=== PATIENT | male | born 1975 | race Two or more races ===

== ENCOUNTER 2020-02-08 14:28 | Emergency (ER) | payer BC, SELFPAY ==
--- NOTE | ~2020-02-08 | XR_ITS ---
XR finger 5th LT min 2V DATE: 02/08/2020 14:50 INDICATION: Smashed left fifth finger in car door. Distal pain. TECHNIQUE: 4 views COMPARISON: None FINDINGS: No fracture or dislocation, periosteal reaction or bone destruction. No radiopaque soft tis trace foreign body or subcutaneous emphysema. IMPRESSION: No fracture or dislocation Reviewed, dictated and finalized at location A. IMPRESSION: No fracture or dislocation
--- NOTE | 2020-02-08 14:29 | ED.GENADULT ---
HPI - General Adult General Chief complaint: Extremity Injury, Upper Stated complaint: finger injury Time Seen by Provider: 02/08/20 14:51 Source: patient and RN notes reviewed Mode of arrival: ambulatory Limitations: no limitations History of Present Illness HPI narrative: 45-year-old male presents with concern for a finger injury's left hand. Reports prior to arrival he crushed the tip of his fifth digit in a car door. Reports he had a hard time getting it to stop bleeding. Reports pain, bruising. He is not up-to-date on his tetanus. MD complaint: Finger injury Related Data Home Medications Medication Instructions Recorded Confirmed aspirin [Aspirin Low Dose] 81 mg PO DAILY 02/08/20 02/08/20 omeprazole 20 mg PO DAILY 02/08/20 02/08/20 Allergies Allergy/AdvReac Type Severity Reaction Status Date / Time Penicillins Allergy Unknown DOESN'T Verified 02/08/20 14:33 KNOW WAS A CHILD Review of Systems Review of Systems: Narrative: CONSTITUTIONAL: Denies malaise, chills, sweats, or fever. CARDIOVASCULAR: Denies chest pain, palpitations SKIN: Reports laceration to the fifth digit of the left hand MUSCULOSKELETAL: Reports bruising, pain to the fifth digit of left hand NEUROLOGIC: Denies numbness, weakness. All systems reviewed & are unremarkable except as noted in HPI and below PMFSH Comments At time of signature, agree with nursing past medical, surgical, social and family history. There is no relevant family history pertinent to the presenting complaint Exam Narrative: Exam Narrative: GENERAL: Well-appearing, well-nourished, and in no acute distress. HEAD: Normocephalic EYES: PERRLA NECK: Supple. CHEST: Speaks in full sentences. No respiratory distress. HEART: Regular rate and rhythm. Normal and equal peripheral pulses. EXTREMITIES: Left hand and digits of hand have normal strength and sensation. 5/5 strength with digit flexion, extension. Range of motion normal. No clubbing, cyanosis, or edema noted. No tenderness. Skin intact. Normal digital cascade with flexion of fingers, median, ulnar and radial nerve intact. Normal sensation of each side of finger. Can perform 'okay' sign, 'cross over finger test of index and middle fingers' and 'thumbs up' sign. No scissoring. Normal thumb opposition. Good capillary refill and radial pulse. Distal capillary refill <3 seconds. SKIN: Warm, dry, no rash. Irregular superficial laceration approximately 0.5 cm noted to the dorsal aspect of the fifth digit of the left hand, at the distal end, not involving nail bed. NEURO: Alert and oriented x3. PSYCH: Normal mood and affect Course Course Emergency Course: Wound cleaned, irrigated, Steri-Strips applied for wound closure, hemostasis achieved. Sterile dressing applied, anticipatory guidance given regarding wound care. Patient is aware of diagnosis, understands and agrees to treatment plan. Anticipatory guidance given. Patient agrees to follow-up as directed and is aware of reasons to seek care at the emergency department. Portions of this record may have been created with voice recognition software Vital Signs Vital signs: Vital Signs Temperature 99.5 F 02/08/20 14:40 Pulse Rate 70 02/08/20 14:40 Respiratory Rate 20 02/08/20 14:40 Blood Pressure 142/80 H 02/08/20 14:40 Pulse Oximetry 99 02/08/20 14:40 Temperature 99.5 F 02/08/20 14:40 Pulse Rate 70 02/08/20 14:40 Respiratory Rate 20 02/08/20 14:40 Blood Pressure 142/80 H 02/08/20 14:40 Pulse Oximetry 99 02/08/20 14:40 Reviewed. Pt has been instructed to follow up with his primary care provider within the next week regarding his elevated blood pressure today. Medical Decision Making MDM Narrative Medical decision making narrative: Patients injury and pain is consistent with musculoskeletal etiology. No signs of neurological or vascular compromise on exam. Compartments and tissues are soft without signs of compartment syndrome. Pain is fe
[2020-02-08 14:40] VITALS: BP 142/80; PULSE 70; RESP 20; TEMP 37.5; O2SAT 99
[2020-02-08] MEDS: TETANUS,DIPHTHERIA,AC PERTUSSIS ADULT 0.5 ML (ADACEL) IM (14:52)
== END 2020-02-08 15:14 | disposition home or self-care (01) ==
PROVIDERS: Emergency Provider Nurse Practitioner; PCP Nurse Practitioner Family
DX: S67.197A Crushing injury of left little finger, initial encounter (principal); W23.0XXA Caught, crushed, jammed, or pinched between moving objects, initial encounter; S61.217A Laceration without foreign body of left little finger without damage to nail, initial encounter; Z23 Encounter for immunization; Z86.73 Personal history of transient ischemic attack (TIA), and cerebral infarction without residual deficits; K21.9 Gastro-esophageal reflux disease without esophagitis
CPT/HCPCS: 73140; 90471; 90715; 99213; G0463

== ENCOUNTER 2020-06-22 07:34 | Outpatient (CLI) | payer BC, SELFPAY ==
--- NOTE | ~2020-06-22 | US_ITS ---
EXAMINATION: US thyroid DATE: 06/22/2020 08:35 INDICATION: Localized swelling, mass and lump at the neck. TECHNIQUE: Multiple ultrasound images of the thyroid were obtained. COMPARISON: CT dated 06/03/2014 FINDINGS: The right thyroid lobe measures 4.2 x 2.0 x 1.3 cm. The left thyroid lobe measures 3.0 x 1.2 x 1.3 c m. There are multiple subcentimeter bilateral thyroid nodules with well-defined margins the majority anechoic with peripheral echogenic foci most likely representing inspissated colloid at the peripher y of colloid cysts, the largest measuring 5 mm in the inferior left thyroid. There is a larger 9 mm w ider than tall solid hypoechoic nodule with ill-defined margins. (TI-RADS 4, moderately suspicious , FNA if >=1.5 cm, annual followup is >1 cm) in the right thyroid. There is normal echotexture, echogen icity and vascular flow throughout the remainder of the thyroid gland. IMPRESSION: 1. Multiple subcentimeter thyroid nodules the largest a 9 mm TI RADS 4 nodule in the remaining 5 mm o r smaller with appearance consistent with colloid cysts, none meeting consensus criteria for biopsy o r follow-up. Reviewed, dictated and finalized at location A. IMPRESSION: 1. Multiple subcentimeter thyroid nodules the largest a 9 mm TI RADS 4 nodule i n the remaining 5 mm or smaller with appearance consistent with colloid cysts, none meeting consensus criteria for biopsy or follow-up.
== END 2020-06-22 07:35 | disposition home or self-care (01) ==
PROVIDERS: PCP Nurse Practitioner Family; Visit Provider Otolaryngology
DX: E04.2 Nontoxic multinodular goiter (principal)
CPT/HCPCS: 76536

== ENCOUNTER 2021-01-09 09:30 | Outpatient (CLI) | payer BC, OTHER, SELFPAY | END 2021-01-09 09:31 | disposition home or self-care (01) | LOC: ANHCOVIDVC 09:30 | PROVIDERS: PCP Otolaryngology | DX: Z23 Encounter for immunization (principal) | CPT/HCPCS: 0001A; 91300 ==

== ENCOUNTER 2021-01-30 09:28 | Outpatient (CLI) | payer BC, OTHER, SELFPAY | END 2021-01-30 09:29 | disposition home or self-care (01) | LOC: ANHCOVIDVC 09:28 | PROVIDERS: PCP Otolaryngology | DX: Z23 Encounter for immunization (principal) | CPT/HCPCS: 0002A; 91300 ==

== ENCOUNTER 2021-02-23 07:26 | Outpatient (CLI) | payer BC, SELFPAY ==
--- NOTE | ~2021-02-23 | US_ITS ---
US thyroid INDICATION: Nontoxic thyroid nodule TECHNIQUE: Real-time sonographic images of the thyroid gland were obtained. COMPARISON: Ultrasound dated 06/22/2020 FINDINGS: The right thyroid lobe measures 3.8 x 1.6 x 1.6 cm. The left thyroid lobe measures 3.6 x 1 .3 x 1.5 cm. There is normal echotexture and echogenicity throughout the thyroid gland. There are mul tiple benign cystic nodules of the thyroid gland. The previously visualized 9 mm right thyroid nodule is not demonstrated on the current study. Isthmus measures 5 mm. Normal vascular flow is present. IMPRESSION: 1. Benign cystic nodules of the thyroid gland. No suspicious nodules which meet consistencies criter ia for biopsy or follow-up. Reviewed, dictated and finalized at location B. IMPRESSION: 1. Benign cystic nodules of the thyroid gland. No suspicious nodules which wencselao t consistencies criteria for biopsy or follow-up.
== END 2021-02-23 07:27 | disposition home or self-care (01) ==
PROVIDERS: PCP Otolaryngology; Visit Provider Otolaryngology
DX: E04.2 Nontoxic multinodular goiter (principal)
CPT/HCPCS: 76536

== ENCOUNTER 2021-05-27 16:54 | Outpatient (CLI) | payer BC, SELFPAY ==
--- NOTE | ~2021-05-27 | US_ITS ---
US thyroid INDICATION: Nontoxic thyroid nodule. TECHNIQUE: Real-time sonographic images of the thyroid gland were obtained. COMPARISON: Ultrasound dated 02/23/2021 FINDINGS: The right thyroid lobe measures 3.8 x 1.6 x 1.3 cm. The left thyroid lobe measures 4.3 x 1 .6 x 1.4 cm. There are multiple small subcentimeter cysts in both lobes of the thyroid gland. No horacio d masses are identified. There is normal vascularity in both thyroid lobes. IMPRESSION: 1. Benign subcentimeter cysts of the thyroid gland, likely of no clinical significance. Reviewed, dictated and finalized at location A. IMPRESSION: 1. Benign subcentimeter cysts of the thyroid gland, likely of no clinical sign ificance.
== END 2021-05-27 16:55 | disposition home or self-care (01) ==
PROVIDERS: PCP Otolaryngology; Visit Provider Otolaryngology
DX: E04.1 Nontoxic single thyroid nodule (principal)
CPT/HCPCS: 76536

== ENCOUNTER 2021-12-06 19:03 | Emergency (ER) | payer BC, SELFPAY ==
--- NOTE | ~2021-12-06 | CT_ITS ---
EXAMINATION: CT brain wo con EXAM DATE: 12/06/2021 22:06 INDICATION: Left upper extremity weakness, numbness . TECHNIQUE: Spiral CT of the head was performed without contrast. Axial, coronal and sagittal images were reviewed. The dose-length product (DLP) for this examination was 605.33 mGy-cm. The exposure w as tailored according to patient size, and iterative reconstruction (ASIR) was used as additional dos e reduction technique. There is no prior study for comparison. FINDINGS: There is no acute intraparenchymal hemorrhage. No evidence of intraparenchymal brain mass lesion. No evidence of acute infarction. There is no mass effect or midline shift. The ventricles are normal in size. There are no extra-axial collections. There are no acute calvarial fractures. T he orbits are unremarkable. Soft tissue is unremarkable. The visualized sinuses and mastoid air david ls are well aerated. IMPRESSION: 1. No acute intracranial findings. Reviewed, dictated and finalized at location B. A[facility] GR[employer]ER
--- NOTE | ~2021-12-06 | XR_ITS ---
EXAMINATION: XR chest 1V portable EXAM DATE: 12/06/2021 21:59 INDICATION: Lt Arm Weakness/Tingling, Heartburn, Hx Tia TECHNIQUE: Portable AP frontal chest x-ray was obtained. There is no prior study for comparison. FINDINGS: The lungs are clear. There are no pleural effusions. The cardiomediastinal silhouette is within normal limits. There is no pneumothorax suspected. The bones and soft tissues are unremarkab le. IMPRESSION: No acute cardiopulmonary findings. Reviewed, dictated and finalized at location B. [employer]
[2021-12-06 19:07] VITALS: BP 130/85; PULSE 78; RESP 18; TEMP 36.9; O2SAT 98
[2021-12-06 21:34] VITALS: BP 121/87; PULSE 73; RESP 19; O2SAT 96
--- NOTE | 2021-12-06 21:50 | ECG_ITS ---
Measurements Intervals [place] Rate: 68 P: 49 PA: 173 QRS: 64 QRSD: 78 T: 23 QT: 374 QTc: 398 Interpretive Statements SINUS RHYTHM MINIMAL Q WAVES- INFERIOR LEADS BORDERLINE ECG Electronically Signed On 12-07-2021 6:17:12 [employer] by Dequan Fernández D.O.
--- NOTE | 2021-12-06 21:52 | ED.NEUROSD ---
HPI - Neuro Symptoms/Deficit General Chief Complaint: Extremity Injury, Upper Stated Complaint: numbness and tingling to left arm Time Seen by Provider: 12/06/21 21:49 Source: patient Mode of arrival: ambulatory Limitations: no limitations History of Present Illness HPI Narrative: Patient is a 46-year-old male complaining of left upper extremity numbness, tingling that started around 11 AM this morning, lasting for about an hour and resolved. Patient states that the numbness and tingling recurred again at 6 PM accompanied by chest discomfort which he states has resolved. Patient denies any speech or visual disturbance, unsteady gait, headache, dizziness, chest pain, shortness of breath, abdominal pain, nausea, vomiting, fever or chills. Related Data Home Medications Medication Instructions Recorded Confirmed aspirin [Aspirin Low Dose] 81 mg PO DAILY 02/08/20 02/08/20 omeprazole 20 mg PO DAILY 02/08/20 02/08/20 atorvastatin 20 mg tablet 20 mg PO DAILY 06/19/20 Allergies Allergy/AdvReac Type Severity Reaction Status Date / Time ampicillin Allergy Unknown unknown Verified 12/06/21 19:13 Penicillins Allergy Unknown DOESN'T Verified 12/06/21 19:13 KNOW WAS A CHILD Review of Systems Review of Systems: All systems reviewed & are unremarkable except as noted in HPI and below Constitutional: Constitutional: Denies body ache(s), Denies chills, Denies excessive sweating, Denies fatigue, Denies fever(s), Denies headache(s), Denies lethargy, Denies malaise, Denies weakness and Denies weight loss Eyes: Eyes: Denies blurry vision, Denies change in vision and Denies loss of vision ENT: Denies dizziness, Denies ear discharge, Denies headache(s), Denies lip swelling, Denies epistaxis, Denies nasal congestion, Denies neck pain, Denies throat swelling and Denies tongue swelling Cardiovascular: Cardiovascular: Denies chest pain, Denies chest pain at rest, Denies chest pain with activity, Denies diaphoresis, Denies rapid heart rate, Denies edema, Denies irregular heart rhythm, Denies lightheadedness, Denies palpitations, Denies dyspnea and Denies dyspnea on exertion Respiratory: Respiratory: Denies chest congestion, Denies cough, Denies hemoptysis, Denies dyspnea and Denies dyspnea on exertion Gastrointestinal: Gastrointestinal: Denies abdominal pain, Denies melena, Denies hematochezia, Denies diarrhea, Denies nausea, Denies vomiting and Denies hematemesis Musculoskeletal: Musculoskeletal: Denies abnormal gait, Denies deformity, Denies joint swelling, Denies limited range of motion, Denies neck pain and Denies numbness Neurologic: Denies Abnormal speech present, Denies abnormal gait, Denies confusion, Denies dizziness, Denies headache(s), Denies loss of vision, Denies Other visual disturbances and Denies weakness Psychiatric: Psychiatric: Denies confusion, Denies depression, Denies auditory hallucinations, Denies homicidal ideation and Denies suicidal ideation Endocrine: Endocrine: Denies cold intolerance, Denies excessive sweating, Denies fatigue, Denies heat intolerance and Denies palpitations Hematologic/Lymphatic: Hematologic/Lymphatic: Denies easy bleeding and Denies easy bruising Allergic/Immunologic: Allergic/Immunologic: Denies lip swelling, Denies throat swelling and Denies tongue swelling [facility] Social History Social History Smoking status: Never smoker Alcohol intake: current Alcohol use details: occasionally Substance use: never Exam Const: General: cooperative, healthy appearing, comfortable, no acute distress, well developed, alert and awake; No confusion Orientation/consciousness: oriented to person, oriented to place, oriented to time, patient oriented x3 and No confusion Limitations: no limitations HENMT: Head: normal to inspection, normocephalic and atraumatic Ears: hearing grossly normal bilaterally, TM normal on the right and TM normal on the
[2021-12-06 22:30] LABS: Basophils Percent Auto 0.5 % (0.2-1.2); Eosinophils Absolute Auto 0.2 K/mm3 (0-0.3); Eosinophils Percent Auto 2.6 % (0-4.4); Hematocrit 39.2 % (42.0-52.0); Hemoglobin 14.4 g/dL (14.0-18.0); Immature Granulocyte Absolute 0.02 K/mm3 (0.00-0.031); Immature Granulocyte Percent A 0.3 % (0-0.5); Lymphocytes Percent Auto 35.4 % (18.3-44.2); Mean Corpuscular HGB Conc 36.7 g/dl (32-36); Mean Corpuscular Hemoglobin 31.6 pg (26-34); Mean Corpuscular Volume 86.2 fl (80-100); Mean Platelet Volume 10.8 fl (7.4-10.4); Monocytes Absolute Auto 0.5 K/mm3 (0.1-0.6); Monocytes Percent Auto 6.5 % (2.6-8.5); Neutrophils Percent Auto 54.7 % (45.5-73.1); Platelet Count Result 310 k/mm3 (150-375); Red Blood Count 4.55 M/mm3 (4.6-6.20); Red Cell Distribution Width 15.1 % (11.5-14.5); White Blood Count 7.3 K/mm3 (4.5-10.0)
[2021-12-06 22:40] LABS: Anion Gap 8 mmol/L (8-16); Blood Urea Nitrogen 13 mg/dL (9-20); Calcium 9.3 mg/dL (8.4-10.2); Carbon Dioxide 25 mmol/L (22-30); Chloride 104 mmol/L (98-107); Estimated CRCL calculation 71 ml/min; Estimated Glomerular Filt Rate > 60; Glucose 109 mg/dL (65-110); Potassium 3.7 mmol/L (3.4-5.0); Sodium 137 mmol/L (137-145)
[2021-12-06 22:49] LABS: Prothrombin Time 12.7 Seconds (11.1-14.7)
[2021-12-06 22:50] LABS: Partial Thromboplastin Time 26.4 SECONDS (22.3-36.8)
[2021-12-06 22:52] LABS: Troponin I < 0.012 ng/mL (0.000-0.034)
[2021-12-06] MEDS: ASPIRIN 81 MG CHEWABLE TABLET 324 MG PO (23:21)
--- NOTE | 2021-12-06 23:24 | PC.NURSE ---
Pt requested to leave AMA per ED MD. AMA form signed by pt and witnessed by this RN. IV out. a/o x 4. denies pain.
[2021-12-06 23:25] VITALS: BP 134/80; PULSE 74; RESP 18; TEMP 36.7; O2SAT 97
== END 2021-12-06 23:26 | disposition left against medical advice (07) ==
PROVIDERS: Emergency Provider Emergency Medicine; PCP Nurse Practitioner Family
DX: G45.9 Transient cerebral ischemic attack, unspecified (principal); R07.89 Other chest pain; Z79.82 Long term (current) use of aspirin
CPT/HCPCS: 36415; 70450; 71045; 80048; 84484; 85025; 85610; 85730; 93005; 99284; A9270

== ENCOUNTER 2021-12-14 02:43 | Day surgery (SDC) | payer BC, SELFPAY ==
[2021-12-09 10:54] VITALS: BMI 26.6
[2021-12-14 08:53] VITALS: BP 114/63; PULSE 74; TEMP 36.4; O2SAT 98
[2021-12-14] MEDS: LACTATED RINGERS 1,000 ML 150 ML IV CONT (09:00)
--- NOTE | 2021-12-14 09:01 | WPDANESEPPF ---
Anes - Initial Pre Proc Eval Procedure: Operation Date: 12/14/21 10:00 Proposed Procedures p Esophagogastroduodenoscopy - Phillip Harrington MD Date/Time: 12/14/21 09:01 Surgeon: Phillip Harrington MD Pre Op Diagnosis: GERD, Magdaleno's Esophagus Patient Data Age: 46 Gender: M Height: 1.57 m Weight: 66.1 kg Last Vital Signs Temp 36.4 C L 12/14/21 08:53 Pulse 74 12/14/21 08:53 BP 114/63 12/14/21 08:53 Pulse Ox 98 12/14/21 08:53 Allergies Allergy/AdvReac Type Severity Reaction Status Date / Time ampicillin Allergy Severe Other Verified 12/14/21 08:52 Penicillins Allergy Severe DOESN'T Verified 12/14/21 08:52 KNOW WAS A CHILD Home Medications Medication Instructions Recorded Confirmed Type aspirin [Aspirin Low Dose] 81 mg PO DAILY 02/08/20 12/09/21 History omeprazole 20 mg PO DAILY 02/08/20 12/09/21 History atorvastatin 20 mg tablet 20 mg PO DAILY 06/19/20 12/09/21 History Patient hx anesthesia problems: none Family hx anesthesia problems: none Results Review: All pre-operative results and documents have been reviewed as part of the pre-operative evaluation. [facility] Past Medical History Medical History (Updated 12/14/21 @ 09:01 by Theo Jo MD) Magdaleno's esophagus History of CVA (cerebrovascular accident) Overweight Social History Social History Smoking status: Never smoker Alcohol intake: current Drinks per week: 7 Alcohol use details: occasionally Substance use: never Substance use type: does not use Living arrangements: with family Spiritual care concerns: No Anes - Eval Final PreProcedure Day of Procedure 12/14/21 09:01 Patient weight: overweight Heart: regular rate and rhythm Lungs: clear to auscultation Airway: Mallampati scale class II Neurological: alert and oriented Last oral intake: >/= 8 hours ASA classification: II Emergent: no Anesthetic plan: proceed Anesthesia type and monitoring: general GIVS and standard monitoring Results Review: All pre-operative results and documents have been reviewed as part of the pre-operative evaluation. Informed Consent: The patient's anesthetic plan and its attendant risks and benefits were discussed with the patient/family/POA. Questions were solicited and answers provided to the satisfaction of the patient/family/POA.
--- NOTE | 2021-12-14 09:45 | PM.HPGS ---
History of Present Illness History of Present Illness Consent: Risks, benefits, and alternatives have been discussed and questions answered. Patient agrees to proceed with procedure. 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 Recently he has had a breakthrough with a great deal of burning in his chest a couple weeks ago. He actually went to the emergency room where cardiac evaluation was negative. He denies dysphagia Review of Systems Review of Systems: All systems reviewed & are unremarkable except as noted in HPI and below PMFSH Past Medical History Medical History Magdaleno's esophagus History of CVA (cerebrovascular accident) Overweight Social History Social History Smoking status: Never smoker Alcohol intake: current Drinks per week: 7 Alcohol use details: occasionally Substance use: never Substance use type: does not use Living arrangements: with family Spiritual care concerns: No Meds Home Medications and Allergies Home Medications Medication Instructions Recorded Confirmed Type aspirin [Aspirin Low Dose] 81 mg PO DAILY 02/08/20 12/09/21 History omeprazole 20 mg PO DAILY 02/08/20 12/09/21 History atorvastatin 20 mg tablet 20 mg PO DAILY 06/19/20 12/09/21 History Allergies Allergy/AdvReac Type Severity Reaction Status Date / Time ampicillin Allergy Severe Other Verified 12/14/21 08:52 Penicillins Allergy Severe DOESN'T Verified 12/14/21 08:52 KNOW WAS A CHILD Vital Signs Vital Signs - 24 hr 12/14/21 08:53 Temperature 36.4 C L Pulse Rate 74 Blood Pressure 114/63 Pulse Oximetry 98 Assessment and Plan Assessment and plan (1) GERD (gastroesophageal reflux disease): Code(s): K21.9 - Gastro-esophageal reflux disease without esophagitis Status: Acute Assessment and Plan: EGD with possible biopsy or dilatation or cautery.
[2021-12-14 09:59] VITALS: BP 92/59; PULSE 73; RESP 17; O2SAT 98
[2021-12-14 10:09] VITALS: BP 100/68; PULSE 70; RESP 12; O2SAT 100
[2021-12-14 10:19] VITALS: BP 98/70; PULSE 75; RESP 15; O2SAT 100
== END 2021-12-14 10:42 | disposition home or self-care (01) ==
PROVIDERS: PCP Nurse Practitioner Family; Visit Provider Internal Medicine Gastroenterology
PROC: 0DJ08ZZ Inspection of Upper Intestinal Tract, Via Natural or Artificial Opening Endoscopic (ICD-10-PCS; CPT 43235; principal; 2021-12-14 10:00)
DX: K22.70 Barrett's esophagus without dysplasia (principal); Z86.73 Personal history of transient ischemic attack (TIA), and cerebral infarction without residual deficits; Z79.82 Long term (current) use of aspirin
CPT/HCPCS: 43239; 88305; J2704; J7120

== ENCOUNTER 2021-12-23 08:03 | Outpatient (CLI) | payer BC, SELFPAY ==
--- NOTE | 2021-12-23 | EST_ITS ---
Patient Info Name: Bereket Schaefer Age: 46 years : 1975 Gender: Male Ht: 62 in Wt: 145 lbs BSA: 1.71 m2 HR: 67 bpm BP: 105 / 75 mmHg Heart Rhythm: Sinus Rhythm Exam Date: 12/23/2021 9:02 AM Exam Location: [facility] Stress Patient Status: Outpatient Admit Date: 12/23/2021 Staff Ordering Physician: Shawn, Lidia Melo [facility] Attending Provider: Shawn, Lidia Melo [facility] Exercise Technologist: Kirsty Dumont CT Nurse: NICHOLAS NIX Exam Type: CA stress test treadmill Study Info Indications R07.9 - Chest pain, unspecified A treadmill exercise stress test was performed. Summary 1. Normal sinus rhythm - normal ECG. 2. No abnormal ST/T wave changes with exercise. 3. Graded exercise test clinically and electrocardiographically negative to 94% of age predicted maximum heart rate. Protocol: [facility] Stress ECG Details Stage: REST Duration (min): 1 min : 25 sec Speed (mph): 0.0 Grade (%): 0 HR (bpm): 62 SBP (mmHg): 105 DBP (mmHg): 75 METS: --- Stage: REST Duration (min): 4 min : 5 sec Speed (mph): 0.0 Grade (%): 0 HR (bpm): 73 SBP (mmHg): 105 DBP (mmHg): 75 METS: --- Stage: STAGE 1 Duration (min): 1 min : 0 sec Speed (mph): 1.7 Grade (%): 10 HR (bpm): 94 SBP (mmHg): 105 DBP (mmHg): 75 METS: --- Stage: STAGE 1 Duration (min): 2 min : 0 sec Speed (mph): 1.7 Grade (%): 10 HR (bpm): 102 SBP (mmHg): 105 DBP (mmHg): 75 METS: --- Stage: STAGE 1 Duration (min): 3 min : 0 sec Speed (mph): 1.7 Grade (%): 10 HR (bpm): 101 SBP (mmHg): 147 DBP (mmHg): 69 METS: --- Stage: STAGE 2 Duration (min): 1 min : 0 sec Speed (mph): 2.5 Grade (%): 12 HR (bpm): 115 SBP (mmHg): 147 DBP (mmHg): 69 METS: --- Stage: STAGE 2 Duration (min): 2 min : 0 sec Speed (mph): 2.5 Grade (%): 12 HR (bpm): 116 SBP (mmHg): 179 DBP (mmHg): 68 METS: --- Stage: STAGE 2 Duration (min): 3 min : 0 sec Speed (mph): 2.5 Grade (%): 12 HR (bpm): 123 SBP (mmHg): 179 DBP (mmHg): 68 METS: --- Stage: STAGE 3 Duration (min): 1 min : 0 sec Speed (mph): 3.4 Grade (%): 14 HR (bpm): 137 SBP (mmHg): 179 DBP (mmHg): 68 METS: --- Stage: STAGE 3 Duration (min): 2 min : 0 sec Speed (mph): 3.4 Grade (%): 14 HR (bpm): 149 SBP (mmHg): 181 DBP (mmHg): 86 METS: --- Stage: STAGE 3 Duration (min): 3 min : 0 sec Speed (mph): 3.4 Grade (%): 14 HR (bpm): 155 SBP (mmHg): 181 DBP (mmHg): 86 METS: --- Stage: STAGE 4 Duration (min): 1 min : 0 sec Speed (mph): 4.2 Grade (%): 16 HR (bpm): 164 SBP (mmHg): 181 DBP (mmHg): 86 METS: --- Stage: STAGE 4 Duration (min): 1 min : 0 sec Speed (mph): 4.2 Grade (%): 16 HR (bpm): 164 SBP (mmHg):
== END 2021-12-23 08:04 | disposition home or self-care (01) ==
PROVIDERS: PCP Nurse Practitioner Family; Visit Provider Nurse Practitioner Family
DX: R07.9 Chest pain, unspecified (principal)
CPT/HCPCS: 93017

== ENCOUNTER 2022-06-24 00:16 | Day surgery (SDC) | payer BC, SELFPAY ==
[2022-06-09 14:51] VITALS: BMI 25.7
--- NOTE | 2022-06-23 15:57 | PM.HPGS ---
History of Present Illness History of Present Illness Consent: Risks, benefits, and alternatives have been discussed and questions answered. Patient agrees to proceed with procedure. Chief complaint: neoplasm screening Narrative: Bereket Schaefer is a 47 year old male referred for colon cancer screening. Review of Systems Review of Systems: All systems reviewed & are unremarkable except as noted in HPI and below PMFSH Past Medical History Medical History Magdaleno's esophagus History of CVA (cerebrovascular accident) Overweight Social History Social History Smoking status: Never smoker Alcohol intake: current Drinks per week: 7 Alcohol use details: occasionally Substance use: unknown Substance use type: does not use Living arrangements: with family Spiritual care concerns: No Meds Home Medications and Allergies Home Medications Medication Instructions Recorded Confirmed Type aspirin 81 mg tablet,delayed 81 mg PO DAILY 02/08/20 06/24/22 History release (Alejo Low Dose Aspirin) atorvastatin 20 mg tablet 20 mg PO DAILY 06/19/20 06/24/22 History pantoprazole 40 mg tablet,delayed 40 mg PO QAM 4 weeks #30 tabs 12/15/21 06/24/22 Rx release Allergies Allergy/AdvReac Type Severity Reaction Status Date / Time ampicillin Allergy Severe Other Verified 06/24/22 06:31 Penicillins Allergy Severe DOESN'T Verified 06/24/22 06:31 KNOW WAS A CHILD Exam Const: General: alert Orientation/consciousness: patient oriented x3 Resp: Auscultation: clear to auscultation bilaterally Cardio: Rhythm: regular rhythm GI: GI Palp: Yes Soft to palpation and No Tenderness to palpation present (GI) Neuro: General: patient oriented x3 Assessment and Plan Assessment and plan (1) Colon cancer screening: Code(s): Z12.11 - Encounter for screening for malignant neoplasm of colon Status: Acute Assessment and Plan: Colonoscopy with possible biopsy or polypectomy or cautery or injection of substances.
[2022-06-24 06:07] VITALS: BP 110/72; PULSE 67; RESP 18; TEMP 36.1; O2SAT 99; BMI 25.9
[2022-06-24] MEDS: LACTATED RINGERS 1,000 ML 150 ML IV CONT (06:43)
--- NOTE | 2022-06-24 07:21 | P.PNAN_ITS ---
Anes - Initial Pre Proc Eval Procedure: Operation Date: 06/24/22 07:30 Proposed Procedures p Screening Colonoscopy - Phillip Harrington MD Date/Time: 06/24/22 07:21 Surgeon: Phillip Harrington MD Pre Op Diagnosis: neoplasm screening Patient Data Age: 47 Gender: M Height: 1.57 m Weight: 64.3 kg Last Vital Signs Temp 96.9 F L 06/24/22 06:07 Pulse 67 06/24/22 06:07 Resp 18 06/24/22 06:07 BP 110/72 06/24/22 06:07 Pulse Ox 99 06/24/22 06:07 O2 Del Method Room Air 06/24/22 06:07 Allergies Allergy/AdvReac Type Severity Reaction Status Date / Time ampicillin Allergy Severe Other Verified 06/24/22 06:31 Penicillins Allergy Severe DOESN'T Verified 06/24/22 06:31 KNOW WAS A CHILD Home Medications Medication Instructions Recorded Confirmed Type aspirin 81 mg tablet,delayed 81 mg PO DAILY 02/08/20 06/24/22 History release (Alejo Low Dose Aspirin) atorvastatin 20 mg tablet 20 mg PO DAILY 06/19/20 06/24/22 History pantoprazole 40 mg tablet,delayed 40 mg PO QAM 4 weeks #30 tabs 12/15/21 06/24/22 Rx release Patient hx anesthesia problems: none Family hx anesthesia problems: none Results Review: All pre-operative results and documents have been reviewed as part of the pre- operative evaluation. [facility] Past Medical History Medical History Magdaleno's esophagus History of CVA (cerebrovascular accident) Overweight Social History Social History Smoking status: Never smoker Alcohol intake: current Drinks per week: 7 Alcohol use details: occasionally Substance use: unknown Substance use type: does not use Living arrangements: with family Spiritual care concerns: No Anes - Eval Final PreProcedure Day of Procedure 06/24/22 07:21 Patient weight: normal Heart: regular rate and rhythm Lungs: clear to auscultation Airway: Mallampati scale class II Neurological: alert and oriented Last oral intake: >/= 8 hours ASA classification: II Emergent: no Anesthetic plan: proceed Anesthesia type and monitoring: general GIVS and standard monitoring Results Review: All pre-operative results and documents have been reviewed as part of the pre- operative evaluation. Informed Consent: The patient's anesthetic plan and its attendant risks and benefits were discussed with the patient/family/POA. Questions were solicited and answers provided to the satisfaction of the patient/family/POA.
[2022-06-24 07:51] VITALS: BP 90/57; PULSE 64; RESP 16; O2SAT 100
[2022-06-24 08:01] VITALS: BP 95/67; PULSE 69; RESP 22; O2SAT 100
[2022-06-24 08:11] VITALS: BP 106/73; PULSE 78; RESP 16; O2SAT 100
== END 2022-06-24 08:27 | disposition home or self-care (01) ==
PROVIDERS: PCP Nurse Practitioner Family; Visit Provider Internal Medicine Gastroenterology
PROC: 0DJD8ZZ Inspection of Lower Intestinal Tract, Via Natural or Artificial Opening Endoscopic (ICD-10-PCS; CPT 45378; principal; 2022-06-24 07:30)
DX: Z12.11 Encounter for screening for malignant neoplasm of colon (principal); Z79.82 Long term (current) use of aspirin; K22.70 Barrett's esophagus without dysplasia; Z86.73 Personal history of transient ischemic attack (TIA), and cerebral infarction without residual deficits
CPT/HCPCS: 45378; J2704; J7120

== ENCOUNTER 2023-05-18 07:52 | Outpatient (CLI) | payer OTHER, SELFPAY ==
--- NOTE | ~2023-05-18 | US_ITS ---
Thyroid ultrasound. Clinical History: Thyroid nodule Findings: Real-time sonography of the thyroid gland was performed. The right lobe measures 4.5 x 1.0 x 2.0 cm. The left lobe measures 4.1 x 1.3 x 1.7 cm. The isthmus is 4 mm in AP diameter. There are t iny subcentimeter colloid cystic nodules in the left thyroid lobe. Impression: Tiny colloid cystic nodules in the left thyroid lobe, of no clinical significance.. Reviewed, dictated and finalized at location M. Impression: Tiny colloid cystic nodules in the left thyroid lobe, of no clinical significan ce..
== END 2023-05-18 07:53 | disposition home or self-care (01) ==
PROVIDERS: PCP Nurse Practitioner Family; Visit Provider Otolaryngology
DX: E04.2 Nontoxic multinodular goiter (principal)
CPT/HCPCS: 76536

== ENCOUNTER 2023-12-27 11:35 | Outpatient (CLI) | payer OTHER, SELFPAY ==
--- NOTE | ~2023-12-27 | XR_ITS ---
Right elbow Technique: AP, oblique, and lateral views were obtained. Clinical History: Pain Findings: No acute fracture or dislocation is seen. Osseous alignment is anatomic. Joint spaces are p reserved. There is no displacement of the fat pads, and soft tissues are unremarkable. Impression: Unremarkable radiographs. Reviewed, dictated and finalized at [facility]. [place] [employer] Impression: Unremarkable radiographs.
== END 2023-12-27 11:36 ==
PROVIDERS: PCP Family Medicine; Visit Provider Family Medicine
DX: M25.521 Pain in right elbow (principal)
CPT/HCPCS: 73080

== ENCOUNTER 2024-05-31 13:17 | Outpatient (CLI) | payer OTHER, SELFPAY ==
--- NOTE | ~2024-05-31 | US_ITS ---
EXAMINATION: US thyroid DATE: 05/31/2024 14:18 INDICATION: Thyroid nodule. TECHNIQUE: Multiple ultrasound images of the thyroid were obtained. COMPARISON: Ultrasound 05/18/2023 FINDINGS: The right thyroid lobe measures 4.3 x 1.4 x 1.5 cm. The left thyroid lobe measures 3.9 x 1.5 x 1.2 c m. There are a few nodules in the thyroid measuring up to 4 mm. IMPRESSION: 1. Small thyroid nodules, likely not clinically significant. No follow-up is needed. Reviewed, dictated and finalized at location A. IMPRESSION: 1. Small thyroid nodules, likely not clinically significant. No follow-up is ne eded.
== END 2024-05-31 13:18 | disposition home or self-care (01) ==
LOC: ANHIMG 13:17
PROVIDERS: PCP Family Medicine; Visit Provider Otolaryngology
DX: E04.2 Nontoxic multinodular goiter (principal)
CPT/HCPCS: 76536

== ENCOUNTER 2024-10-06 10:21 | Emergency (ER) | payer OTHER, SELFPAY ==
[2024-10-06 10:35] VITALS: BP 110/72; PULSE 73; RESP 16; TEMP 36.3; O2SAT 99
--- NOTE | 2024-10-06 10:35 | ED.GENADULT ---
HPI - General Adult General Chief complaint: Upper Respiratory Infection Stated complaint: cold Time Seen by Provider: 10/06/24 10:35 Source: patient Mode of arrival: ambulatory Limitations: no limitations History of Present Illness HPI narrative: 49-year-old male patient presents to the [facility] with complaints of cold symptoms for the past week. Patient denies any fevers that he is aware of denies any body aches or chills. Patient states he has had a lot of congestion and headache and some postnasal drip and sore throat. Patient states he has a mild cough but typically it is just in the morning when he wakes up does not really have a cough throughout the day. Patient has had some fatigue. Related Data Home Medications Medication Instructions Recorded Confirmed aspirin 81 mg tablet,delayed 81 mg PO DAILY 02/08/20 10/06/24 release (Alejo Low Dose Aspirin) Allergies Allergy/AdvReac Type Severity Reaction Status Date / Time ampicillin Allergy Severe Other Verified 10/06/24 10:41 Penicillins Allergy Severe DOESN'T Verified 10/06/24 10:41 KNOW WAS A CHILD Review of Systems Review of Systems: CONSTITUTIONAL: Denies fever, chills, or sweats. EYES: Denies visual changes, redness, or discharge. ENT: Positive rhinorrhea, congestion, sore throat, denies otalgia. CARDIOVASCULAR: Denies chest pain, palpitations, or edema. RESPIRATORY: positive mild intermittent cough denies dyspnea. GASTROINTESTINAL: Denies abdominal pain, nausea, vomiting, or diarrhea. GENITOURINARY: Denies dysuria or hematuria. SKIN: Denies rash or itching. MUSCULOSKELETAL: Denies back pain, joint pain, or myalgia. NEUROLOGIC: positive headache, denies numbness, or weakness. PSYCHIATRIC: Denies anxiety or depression. [facility] Past Medical History Medical History Magdaleno's esophagus History of CVA (cerebrovascular accident) Overweight Surgical History Surgical History H/O removal of cyst Family History Family History Mother Asthma Cancer Father Cancer Grandparent Alcoholism Cancer Heart disease Social History Social History (Reviewed 10/06/24 @ 11:01 by TRUDI Villagran Smoking status: Never smoker Alcohol intake: current Drinks per week: 7 Alcohol use details: occasionally Substance use: unknown Substance use type: does not use Do You Feel Safe in your Home?: Yes Lack of Transportation: No Lack of Food: Never True Current Housing: I Have Housing Concerned About Future Housing: No Difficulty Paying Gas/Electric Bills: No Difficulty Paying for Meds: No Currently Unemployed: No Education: Don't Know Living arrangements: with family Additional living arrangements comments: Single Occupation/Education: occupation Spiritual care concerns: No Agree to blood products: Yes Comments At the time of my signature I agree with nursing past medical history, surgical, social, and family history. There is no relevant family history pertinent to the presenting complaint. Exam Narrative: GENERAL: Well-appearing, well-nourished, and in no acute distress. HEAD: Normocephalic, atraumatic. EYES: PERRLA and EOMI. ENT: Nares with erythema edema noted bilaterally patent, no rhinorrhea or epistaxis. Mucous membranes moist. posterior pharynx with smiles postnasal drip no tonsillar enlargement, no exudates or lesions present. Bilateral TMs are clear no erythema foreign bodies canal. NECK: Supple. No lymphadenopathy CHEST: Clear to auscultation. No respiratory distress. HEART: Regular rate and rhythm. No murmur heard. Normal peripheral pulses. ABDOMEN: Soft, nontender, nondistended, normal active bowel sounds. EXTREMITIES: Normal range of motion. No edema. SKIN: Warm, dry, no rash. NEURO: No focal deficits. Alert and oriented x3. Course Course Level of Care: Express Care Visit Vital Signs Vital signs: Vital Signs Temperature 36.3 C L 10/06/24 10:35 Pulse Rate 73 10/06/24 10:35 Respiratory Rate 16 10/06/24 10:35 Blood Pressure 110/72 10/06/24 10:35 Pulse Oximetry 99 10/06/24 10:35 Oxygen Delivery Room Air 10/06/24 10:35 Temperature 36.3 C L 10/06/24 10:35 Pulse Rate 73 10/06/24 10:35 Respiratory Rate 16 10/06/24 10:35 Blood Pressure 110/72 10/06/24 10:35 Pulse Oximetry 99 10/06/24 10:35 Oxygen Delivery Room Air 10/06/24 10:35 Vital signs reviewed. Medical Decision Making MDM Narrative Medical decision making narrative: Plan care patients to swab him today for influenza and COVID. Discussed with him that if this is negative most likely it is a virus with that he can treat with [id number] medications would recommend [id number] Neti pot, antihistamine, Flonase and humidified air as well as warm salt-water gargles hot tea and honey. Patient is aware the plan of care. Differential Diagnosis Differential Diagnosis: Differential diagnosis: Allergic rhinitis, chronic sinusitis, tonsillitis, acute sinusitis, infectious mononucleosis, seasonal influenza, pertussis, diphtheria, meningococcal disease, viral syndrome, viral bronchitis, RSV, COVID-19 Vital Signs Vital Signs: Vital Signs Temperature 36.3 C L 10/06/24 10:35 Pulse Rate 73 10/06/24 10:35 Respiratory Rate 16 10/06/24 10:35 Blood Pressure 110/72 10/06/24 10:35 Pulse Oximetry 99 10/06/24 10:35 Oxygen Delivery Room Air 10/06/24 10:35 Temperature 36.3 C L 10/06/24 10:35 Pulse Rate 73 10/06/24 10:35 Respiratory Rate 16 10/06/24 10:35 Blood Pressure 110/72 10/06/24 10:35 Pulse Oximetry 99 10/06/24 10:35 Oxygen Delivery Room Air 10/06/24 10:35 Lab Data Labs: Lab Results 10/06/24 Range/Units 11:05 POC Influenza A Ag Negative (Negative) POC Influenza B Ag Negative (Negative) POC SARS CoV-2 Ag Negative (Negative) Critical Care Time Critical Care Time Critical Care Time: No Discharge Plan Discharge Clinical Impression: Viral URI Patient Disposition: Home, Self-Care Condition: Stable Instructions: Antibiotic Form, Viral Syndrome (ED) Additional Instructions: Viral illness may last between 7-12days; antibiotic is NOT recommended at this time. Recommend antihistamine such as Benadryl at night time and Claritin/Zyrtec/Nika during the day Cough syrup may cause drowsiness; avoid driving or take it at night time. Also, recommend symptomatic treatment includes: rest, fluids, and increase humidity of the air at home. Recommend Acetaminophen or nonsteroidal anti-inflammatory agents (NSAIDs) as directed in the bottle to reduce fever and/pain/headache. Avoid smoking/second-hand smoke. Limit visits to areas with large crowds. Please schedule a follow-up visit with your personal physician for further evaluation and treatment within 3-5days. Including recheck and discussion of your blood pressure. If your symptoms persist, change or worsen significantly before you can contact your personal physician then please, without delay, go to the emergency department for further evaluation. Prescriptions: No Action aspirin [Alejo Low Dose Aspirin] 81 mg Tablet,Delayed Release (Dr/Ec) 81 mg PO DAILY pantoprazole 40 mg tablet,delayed release (DR/EC) 40 mg PO DAILY Qty: 90 2RF atorvastatin 20 mg tablet 20 mg PO DAILY Qty: 90 1RF finasteride 5 mg tablet 5 mg PO DAILY Qty: 90 0RF triamcinolone acetonide 0.5 % cream 1 applic topical DAILY Qty: 15 0RF Airsupra 90-80 mcg/actuation HFA aerosol inhaler 2 inh inhalation ONCE Qty: 32.1 2RF Rx Instructions: as a single dose; may repeat up to 6 doses per day (12 inhalations) Follow-up/Referrals: Lidia Escobar APRN [Primary Care Provider] - Time of Disposition: 11:11
[2024-10-06 11:06] LABS: EDCOVIDSCREEN Negative (Negative); EDINFLUASCREEN Negative (Negative); EDINFLUBSCREEN Negative (Negative)
== END 2024-10-06 11:18 | disposition home or self-care (01) ==
PROVIDERS: Emergency Provider Nurse Practitioner Family; PCP Nurse Practitioner Family
DX: J06.9 Acute upper respiratory infection, unspecified (principal); Z20.822 Contact with and (suspected) exposure to COVID-19; K22.70 Barrett's esophagus without dysplasia; Z86.73 Personal history of transient ischemic attack (TIA), and cerebral infarction without residual deficits; Z79.82 Long term (current) use of aspirin
CPT/HCPCS: 87426; 87804; 99212; G0463

== ENCOUNTER 2025-01-05 09:05 | Emergency (ER) | payer OTHER, SELFPAY ==
--- OUTSIDE RECORDS SUMMARY | 2025-01-05 09:08 | XMS_ITS | Data Portability ---
Author Organization [place] - [facility] [employer], Main Office Address [address] [place] [address] Assessment Encounter Date Assessment Date Assessment LastModified by Organization Details LastModified Time 12/27/2023 12/27/2023 D/w pt about his findings and further plan of care. Explained about different options for him. Will do x-ray. Meds as directed. RICE explained. Educated pt about alarming symptoms to monitor at home. F/u in 2-3 weeks as directed. [email or web address] Not available 12/27/2023 10:15:05 Plan of Treatment Reminders Order Date Submit Date Provider Last Modified By Organization Details Last Modified Time Details Appointments None recorded. Lab lipid [facility], [email or web address] [address] [place], [address], 3 07:56:44 Referral None recorded. Procedures None recorded. Surgeries None recorded. Imaging XR, elbow, 3 or more view - Pt over the blood draw site 1 week ago. 024 024 [email or web address] Not available 4 14:33:26 Medication Orders Medrol (Gianni) 4 mg tablets in a dose pack 024 024 [id number], [address], [place], [id number], 4 12:08:51 Pepcid 40 mg tablet 023 023 [id number], [address], [place], [id number], 11:29:50 Patient TargetsNo targets recorded. Patient Instructions Encounter Date Encounter Id Patient Instructions Last Modified By Organization Details Last Modified Time 06/24/2023 [id number] prn. [email or web address] Not available 06/24 11:34:34 06/07/2024 [id number] he will have a a n ultrasound in 1 year. [email or web address] Not available 06/07/2024 12:53:23 Reason for Referral None Reported. Results Created Date Observation Date Name Description Value Unit Range Abnormal Flag Note LastModifiedBy Organization Detail LastModifiedTime 04/28/2004/28/2023 CBC/C OMPLE TE BLD COUNT W/DIF F white blood cells 6.6 x10'3 /uL 4.2-10 .8 Not Available [facility] (Lab) [address] [place], [address], 04/28/2023 14:09:47 04/28/20 23 04/28/2023 CBC/C OMPLE TE BLD COUNT W/DIF F red blood cells 4.85 x10'6 /uL 4.10-5 .80 Not Available [facility] (Lab) [address] [place], [address], 04/28/2023 14:09:47 04/28/20 23 04/28/2023 CBC/C OMPLE TE BLD COUNT W/DIF F hemoglobin 15.0 g/dL 13.2-1 7.0 Not Available [facility] (Lab) [address] [place], [address], 04/28/2023 14:09:47 04/28/20 23 04/28/2023 CBC/C OMPLE TE BLD COUNT W/DIF F hematocrit 42.4 % 39.3-5 0.0 Not Available [facility] (Lab) [address] [place], [address], 04/28/2023 14:09:47 04/28/20 23 04/28/2023 CBC/C OMPLE TE BLD COUNT W/DIF F mean red cell volume 87.4 fL 80.0-9 7.0 Not Available [facility] (Lab) [address] [place], [address], 04/28/2023 14:09:47 04/28/20 23 04/28/2023 CBC/C OMPLE TE BLD COUNT W/DIF F mean red cell hemoglobin 30.9 pg 27.0-3 3.0 Not Available [facility] (Lab) [address] [place], [address], 04/28/2023 14:09:47 04/28/20 23 04/28/2023 CBC/C OMPLE TE BLD COUNT W/DIF F mean RBC HGB concentratio n 35.4 g/dL 31.0-3 6.0 Not Available [facility] (Lab) [address] [place], [address], 04/28/2023 14:09:47 04/28/20 23 04/28/2023 CBC/C OMPLE TE BLD COUNT W/DIF F red cell distribution width 15.1 % 11.8-1 5.5 Not Available [facility] (Lab) [address] [place], [address], 04/28/2023 14:09:47 04/28/20 23 04/28/2023 CBC/C OMPLE TE BLD COUNT W/DIF F platelets 324 x10'3 /uL 150-40 0 Not Available [facility] (Lab) [address] [place], [address], 04/28/2023 14:09:47 04/28/20 23 04/28/2023 CBC/C OMPLE TE BLD COUNT W/DIF F mean platelet volume 11.0 fL 9.0-12 .4 Not Available [facility] (Lab) [address] [place], [address], 04/28/2023 14:09:47 04/28/20 23 04/28/2023 CBC/C OMPLE TE BLD COUNT W/DIF F neutrophils 62.3 % 39.0-7 2.0 Not Available [facility] (Lab) [address] [place], [address], 04/28/2023 14:09:47 04/28/20 23 04/28/2023 CBC/C OMPLE TE BLD COUNT W/DIF F lymphocytes 25.1 % 16.0-4 7.0 Not Available [facility] (Lab) [address] [place], [address], 04/28/2023 14:09:47 04/28/20 23 04/28/2023 CBC/C OMPLE TE BLD COUNT W/DIF F monocytes 7.1 % 5.0-12 .0 Not Available [facility] (Lab) [address] [place], [address], 04/28/2023 14:09:47 04/28/20 23 04/28/2023 CBC/C OMPLE TE BLD COUNT W/DIF F eosinophils 4.1 % 1.0-7. 0 Not Available [facility] (Lab) [address] [place], [address], 04/28/2023 14:09:47 04/28/20 23 04/28/2023 CBC/C OMPLE TE BLD COUNT W/DIF F basophils 0.8 % 0.0-2. 0 Not Available [facility] (Lab) [address] [place], [address], 04/28/2023 14:09:47 04/28/20 23 04/28/2023 CBC/C OMPLE TE BLD COUNT W/DIF F immature granulocytes 0.6 % 0.00-0 .50 high Not Available [facility] (Lab) [address] [place], [address], 04/28/2023 14:09:47 06/29/04/28/2023 CBC/C OMPLE TE BLD COUNT W/DIF F neutrophils, absolute count 4.12 x10'3 /uL 1.5-8. 0 Not Available [facility] (Lab) [address] [place], [address], 04/28/2023 14:09:47 04/28/20 23 04/28/2023 CBC/C OMPLE TE BLD COUNT W/DIF F lymphocytes, absolute count 1.66 x10'3 /uL 1.07-3 .43 Not Available [facility] (Lab) [address] [place], [address], 04/28/2023 14:09:47 04/28/2004/28/2023 CBC/C OMPLE TE BLD COUNT W/DIF F monocytes, absolute count 0.47 x10'3 /uL 0.29-0 .99 Not Available [facility] (Lab) [address] [place], [address], 04/28/2023 14:09:47 04/28/20 23 04/28/2023 CBC/C OMPLE TE BLD COUNT W/DIF F eosinophils, absolute count 0.27 x10'3 /uL 0.02-0 .53 Not Available [facility] (Lab) [address] [place], [address], 04/28/2023 14:09:47 04/28/2004/28/2023 CBC/C OMPLE TE BLD COUNT W/DIF F basophils, absolute count 0.05 x10'3 /uL 0.01-0 .08 Not Available [facility] (Lab) [address] [place], [address], 04/28/2023 14:09:47 04/28/2004/28/2023 CBC/C OMPLE TE BLD COUNT W/DIF F immature granulocytes ,absolute 0.04 x10'3 /uL 0.00-0 .05 Not Available [facility] (Lab) [address] [place], [address], 04/28/2023 14:09:47 04/28/20 23 04/28/2023 CBC/C OMPLE TE BLD COUNT W/DIF F nucleated red blood cells 0.0 % -0 Not Available [facility] (Lab) [address] [place], [address], 04/28/2023 14:09:47 04/28/20 23 04/28/2023 CBC/C OMPLE TE BLD COUNT W/DIF F NRBC# 0.00 x10'3 /uL Not Available [facility] (Lab) [address] [place], [address], 04/28/2023 14:09:47 04/28/20 23 04/28/2023 LIPID PANEL cholesterol 203 mg/dL 140-19 9 high NIH MAURA NSUS RECOM MENDA TION FOR SUSHIL STERO L: ADULT CHILD LOW RISK: <200 <170 BORDE RLINE : <200- 239 ----- HIGH RISK: >240 >200 Not Available [facility] (Lab) [address] [place], [address], 04/28/2023 14:24:50 04/28/2004/28/2023 LIPID PANEL triglyceride s 273 mg/dL 0-150 high NIH MAURA NSUS REPOR T RECOM MENDA TION FOR TRIGL YCERI YASMINE: ADULT CHILD LOW RISK: <150 ----- BODER LINE: 150-1 99 ----- HIGH RISK: >200 ----- Not Available [facility] (Lab) [address] [place], [address], 04/28/2023 14:24:50 04/28/2004/28/2023 LIPID PANEL HDL cholesterol 44 mg/dL 40- Not Available [facility] (Lab) [address] [place], [address], 04/28/2023 14:24:50 04/28/2004/28/2023 LIPID PANEL LDL cholesterol, calculated 104 mg/dL 0-130 NIH MAURA NSUS REPOR T RECOM MENDA TIONS FOR LDL: ADULT CHILD LOW RISK <130 <110 (OPTI MAL LDL) <100 ----- SENDYDE RLINE : 130-1 59 ----- HIGH RISK: >160 >130 A TRIGL YCERI DE RESUL T >400 INVAL IDATE S THE CALCU LATIO N FOR LDL FRACT IONAT ION - THE LDL RESUL T WILL NOT BE REPOR DELONTE. Not Available [facility] (Lab) [address] [place], [address], 04/28/2023 14:24:50 04/28/2004/28/2023 COMPR EHENS LAZARA METAB OLIC PANEL sodium 140 mmol/ L 137-14 5 Not Available [facility] (Lab) [address] [place], [address], 04/28/2023 14:24:56 04/28/20 23 04/28/2023 COMPR EHENS LAZARA METAB OLIC PANEL potassium 3.8 mmol/ L 3.5-5. 1 Not Available [facility] (Lab) [address] [place], [address], 04/28/2023 14:24:56 04/28/20 23 04/28/2023 COMPR EHENS LAZARA METAB OLIC PANEL chloride 103 mmol/ L 98-107 Not Available [facility] (Lab) [address] [place], [address], 04/28/2023 14:24:56 04/28/20 23 04/28/2023 COMPR EHENS LAZARA METAB OLIC PANEL carbon dioxide 25 mmol/ L 22-30 Not Available [facility] (Lab) [address] [place], [address], 04/28/2023 14:24:56 04/28/20 23 04/28/2023 COMPR EHENS LAZARA METAB OLIC PANEL anion gap 15.8 mmol/ L 14-22 Not Available [facility] (Lab) [address] [place], [address], 04/28/2023 14:24:56 04/28/20 23 04/28/2023 COMPR EHENS LAZARA METAB OLIC PANEL glucose 101 mg/dL 70-99 high Not Available [facility] (Lab) [address] [place], [address], 04/28/2023 14:24:56 04/28/20 23 04/28/2023 COMPR EHENS LAZARA METAB OLIC PANEL BUN 10 mg/dL 8-19 Not Available [facility] (Lab[facility] [address] [facility] [place], [address], 04/28/2023 14:24:56 04/28/20 23 04/28/2023 COMPR EHENS LAZARA METAB OLIC PANEL creatinine 0.73 mg/dL 0.66-1 .25 Not Available [facility] (Lab) [address] [place], [address], 04/28/2023 14:24:56 04/28/20 23 04/28/2023 COMPR EHENS LAZARA METAB OLIC PANEL GFR >60 Refer ence Range : Turner ge GFR Healt hy Adult : >60 mL/mi n/1.7 3 m2 Chron ic Kidne y Disea se: 15-60 mL/mi n/1.7 3 m2 Kidne y Failu re: <15/m L/min /1.73 m2 www.n iddk. nih.g ov The MDRD study equat ion has not been valid ated in child joshua <18 years of age; pregn ant women ; the elder ly >85 years of age; or in some racia l or ethni c subgr oups, such as Hispa nics. Outsi de the valid ated bhupinder eters , estim ated GFR is less accur ate, requi ring clini hector judgm ent on a case- by-ca se basis . Clini hector inter preta tion for other races and ages must be made by the clini sabine. The MDRD study equat ion has not been valid ated for the evalu ation of serum creat inine relat ed to nutri solis l statu s or medic ation usage . For perso ns <18 years of age, a pedia tric GFR calcu latsteve is avail able on the [facility] websi te: https ://sarah champion.kristin mayy.o rg/pr ofess ional s/kdo qi/gf r_cal culat or Not Available [facility] (Lab) [address] [place], [address], 04/28/2023 14:24:56 04/28/20 23 04/28/2023 COMPR EHENS LAZARA METAB OLIC PANEL alkaline phosphatase 64 U/L 38-126 Not Available [facility] (Lab) [address] [place], [address], 04/28/2023 14:24:56 04/28/20 23 04/28/2023 COMPR EHENS LAZARA METAB OLIC PANEL alanine aminotransfe rase 44 U/L 0-50 Not Available [facility] (Lab) [address] [place], [address], 04/28/2023 14:24:56 04/28/20 23 04/28/2023 COMPR EHENS LAZARA METAB OLIC PANEL aspartate aminotransfe rase 40 U/L 15-46 Not Available [facility] (Lab) [address] [place], [address], 04/28/2023 14:24:56 04/28/20 23 04/28/2023 COMPR EHENS LAZARA METAB OLIC PANEL bilirubin, total 1.20 mg/dL 0.20-1 .30 Not Available [facility] (Lab) [address] [place], [address], 04/28/2023 14:24:56 04/28/20 23 04/28/2023 COMPR EHENS LAZARA METAB OLIC PANEL calcium 9.1 mg/dL 8.4-10 .2 Not Available [facility] (Lab) [address] [place], [address], 04/28/2023 14:24:56 04/28/20 23 04/28/2023 COMPR EHENS LAZARA METAB OLIC PANEL total protein 7.5 g/dL 6.3-8. 2 Not Available [facility] (Lab) [address] [place], [address], 04/28/2023 14:24:56 04/28/20 23 04/28/2023 COMPR EHENS LAZARA METAB OLIC PANEL albumin 4.7 g/dL 3.4-5. 0 Not Available [facility] (Lab) [address] [place], [address], 04/28/2023 14:24:56 04/28/20 23 04/28/2023 COMPR EHENS LAZARA METAB OLIC PANEL globulin 2.8 g/dL 2.6-4. 2 Not Available [facility] (Lab) [address] [place], [address], 04/28/2023 14:24:56 04/28/20 23 04/28/2023 COMPR EHENS LAZARA METAB OLIC PANEL A/G ratio 1.7 ratio 1.0-2. 0 Not Available [facility] (Lab) [address] [place], [address], 04/28/2023 14:24:56 04/28/2004/28/2023 TSH W/REF MELISSA FT4 TSH with reflex free T4 2.390 uIU/m L 0.465- 4.680 Not Available [facility] (Lab) [address] [place], [address], 04/28/2023 14:49:10 04/28/20 23 04/28/2023 VITAM IN B12 (JAROD ODILON ) vb12 556 pg/mL 239-93 1 Not Available [facility] (Lab) [address] [place], [address], 04/28/2023 15:22:53 04/28/20 23 04/29/2023 HEMOG LOBIN A1C HA1C 3.9 % 4.0-6. 0 low Diabe chad Scree laura Crite phyllis: <5.7% Consi stent with absen ce of diabe chad 5.7-6 .4% Consi stent with incre ased risk for diabe chad (pred iabet es) >OR=6 .5% Consi stent with diabe chad REFER ENCE: Diabe chad Care 2016, 39(Castellanos ppl.1 ):s13 -s22 Not Available [facility] ([facility]) [address] [place], [address], 04/29/2023 11:14:33 05/18/20 23 05/18/2023 US, thyro id No observ ation record ed. [email or web address] [facility] [address], [place], [address], 05/18/2023 14:20:29 05/19/20 23 05/18/2023 US, thyro id No observ ation record ed. [address], [place], [address], 05/19/2023 10:50:05 05/25/20 23 US, thyro id No observ ation record ed. [address] [facility] [address], [place], [address], 05/18/2024 08:59:03 12/27/19 24 12/27/2023 XR, elbow , 3 or more view No observ ation record ed. [facility] [address], [place], [address], 12/27/2023 16:26:35 05/31/20 24 05/31/2024 US, thyro id No observ ation record ed. [email or web address] [facility] [address], [place], [address], 06/01/2024 15:14:15 05/31/20 24 05/31/2024 US, thyro id No observ ation record ed. [email or web address] [facility] [address], [place], [address], 06/05/2024 10:22:08 06/06/20 24 06/06/2024 US, thyro id No observ ation record ed. [facility] [address], [place], [address], 06/06/2024 16:56:42 Result Notes None recorded. Problems Name Problem SNOMED Code Status Onset Date Resolution Date Notes Provider Name and Address Organization Details Recorded Time Exertional dizziness 530919850 Active Not Available [facility] 3 08:10:01 Infection of skin 351146777 Active Not Available [facility] 3 08:10:01 History of transient ischemic attack 226908866 Active 2018 Not Available [facility] 3 08:10:01 Backache 341710762 Active 2021 Not Available [facility] 3 08:10:02 Asthma 253107763 Active Not Available [facility] 3 08:10:02 Gastroesop hageal reflux disease 294919850 Active Not Available [facility] 3 08:10:02 Mass of body structure 454002650 Active Not Available [facility] 3 08:10:02 Sinusitis 92351166 Active Not Available [facility] 3 08:10:02 Vertigo 911363947 Active Not Available [facility] 3 08:10:02 Hyperlipid emia 75915271 Active 2017 Not Available [facility] 3 08:10:02 Cyst of thyroid 08442702 Active 2018 Not Available [facility] 3 08:10:02 Urinary incontinen ce 390758683 Active 2022 Lidia Escobar NP [address] [facility] [address], [place], [address] , [facility] 3 08:54:05 Otalgia of right ear 5036877005 Active 2022 Lidia Escobar NP [address], [place], [address] , [facility] 3 09:54:30 Thyroid nodule 176835397 Active 2022 Huma García RN [facility] [place] [facility] 3 16:09:25 Thyroid nodule 836633384 Active 2022 Mello Corrales MD [address], [address], [place], [address] , [facility] 3 16:11:58 Cough 10020253 Active 2022 Lidia Escobar NP [address], [place], [address] , [facility] 3 11:26:31 Pain of right forearm 770769275 Active 2023 Eran Dexter MD [address], [address], [place], [address] , [facility] 4 10:04:00 Pain of right elbow joint 4374744928948 9109 Active 2023 Eran Dexter MD [address], [place], [address] , [facility] 4 10:04:08 Tendinitis 95381079 Active 2023 Eran Dexter MD [address], [place], [address] , [facility] 4 10:05:08 Benign prostatic hyperplasi a without outflow obstructio n 366641136 Active 2023 Eran Dexter MD [address], [place], [address] , [facility] 4 10:07:05 Problem Notes None recorded. Procedures Surgical History Date Name Laterality Status Provider Name and Address Organization Details Recorded Time 2 EGD completed Not Available [facility] 3 08:05:43 Cyst Removal completed AMY Segovia [place] - [facility] 06/07/2024 12:10:32 Imaging Results Imaging Date Name Status LastModified by Organiz ation Details LastModified Time 05/18/2023 US, thyroid completed [email or web address] [facility] [address] [facility] [address] [place] [address], [address], 05/18/2023 14:20:29 05/18/2023 US, thyroid completed [email or web address] [facility] [address] [facility] [address] [place] [address], [address], 05/19/2023 10:50:05 05/25/2023 US, thyroid completed [email or web address] [facility] [address] [facility] [address] [place] [address], [address], 05/18/2024 08:59:03 12/27/2023 XR, elbow, 3 or more view completed [facility] [address], [place], [address], 12/27/2023 16:26:35 05/31/2024 US, thyroid completed [email or web address] [facility] - Breast Ctr [address], [place], [address], 06/01/2024 15:14:15 05/31/2024 US, thyroid completed [email or web address] [facility] [address] [place] [address], [address], 06/05/2024 10:22:08 06/06/2024 US, thyroid completed [email or web address] - Breast Ctr [address], [place], [address], 06/06/2024 16:56:42 Procedure Notes None recorded. Medical Equipment None Reported. Allergies Allergen ID Allergen Name Allergen Category Reaction Reaction Severity Criticality Documentation Date Start Date Code Code System Note Provider Name and Address Organization Details Recorded Time Product containin g penicilli n (product) medicatio n Not available Not available Not available 12/29/2022 61648 8001 SNOMED Not Available [facility] 3 08:15:22 ampicilli n medicatio n Not available Not available Not available 12/29/2022 733 RxNorm Not Available [facility] 3 08:15:22 Medications Name Sig Start Date Stop Date Status Note LastModified by Organization Details LastModified Time aspirin 81 mg capsule Take 1 capsule every day by oral route. 2014 active Not Available Not Available Not Avai lable atorvastat in 20 mg tablet TAKE 1 TABLET BY MOUTH EVERY DAY active Not Available Not Available No t Available triamcinol one acetonide 0.5 % topical cream APPLY THIN LAYER TOPICALLY TO THE AFFECTED AREA TWICE DAILY FOR 5 DAYS 12/27 completed Not Available Not Available Not Available atorvastat in 10 mg tablet TAKE 1 TABLET BY MOUTH EVERY NIGHT 05/12 completed Not Available Not Available Not Available azithromyc in 250 mg tablet Take 2 TABLET EVERY DAY by oral route for 1 day and then one tablet daily for 4 more days active Not Available Not Available No t Available minocyclin e 100 mg capsule active Not Available Not Available Not Available famotidine 40 mg tablet TAKE 1 TABLET BY MOUTH EVERY DAY active Not Available Not Available No t Available prednisone 20 mg tablet Take 1 tablet every day by oral route. active Not Available Not Available No t Available hydrocodon e 10 mg-acetami nophen 325 mg tablet TK 1 T PO Q 6 H PRN P 04/16 completed Not Available Not Available Not Available Kenalog 40 mg/mL suspension for injection Take 40 mg every day by injection route. 04/28 completed Not Available Not Available Not Available prednisolo ne acetate 1 % eye drops,susp ension 06/07 completed Not Available Not Available Not Available methocarba mol 750 mg tablet Take 1 tablet 3 times a day by oral route as needed. 12/27 completed Not Available Not Available Not Available tamsulosin 0.4 mg capsule TAKE 1 CAPSULE BY MOUTH EVERY NIGHT AT BEDTIME 06/07 completed Not Available Not Available Not Available benzonatat e 100 mg capsule take 2 capsules 3 times daily as needed for cough active Not Available Not Available No t Available hydrocodon e 7.5 mg-acetami nophen 325 mg tablet active Not Available Not Available No t Available pantoprazo le 40 mg tablet,del ayed release TAKE 1 TABLET BY MOUTH EVERY MORNING active Not Available Not Available No t Available nystatin-t riamcinolo ne 100,000 unit/g-0.1 % topical cream Apply to rash on buttocks bid for 2 weeks, prn active Not Available Not Available No t Available omeprazole 20 mg capsule,de layed release TAKE ONE CAPSULE BY MOUTH EVERY MORNING 04/27 completed Not Available Not Available Not Available diclofenac sodium 75 mg tablet,del ayed release Take 1 tablet twice a day by oral route as needed. 12/27 completed Not Available Not Available Not Available levofloxac in 500 mg tablet active Not Available Not Available Not Available methylpred nisolone 4 mg tablets in a dose pack FOLLOW PACKAGE DIRECTION S 06/07 completed Not Available Not Available Not Available albuterol sulfate HFA 90 mcg/actuat ion aerosol inhaler INHALE 2 PUFFS BY MOUTH EVERY 4 HOURS NEEDED active Not Available Not Available No t Available finasterid e 5 mg tablet TAKE 1 TABLET BY MOUTH DAILY active Not Available Not Available No t Available Vytone 1.9 %-1 % topical cream packet apply 1 applicati on three times daily as directed for 30 days 01/25 completed Rash on buttoc ks, comes and goes. Yeast? Not Available Not Available Not Available Vitals Date Recorded Body height Body mass index (BMI) Body weight Body temperature Heart rate Respiratory rate Oxygen saturation Oxygen saturation in Arterial blood by Pulse oximetry Pain severity - 0-10 verbal numeric rating [Score] - Reported Systolic blood pressure Diastolic blood pressure Provider Name and Address Organization Details Last Updated DateTime 3 157.48 cm 27.3 kg/m2 37604.3 1 g 95.9 [degF] 79 /min 16 /min 97 % 97 % 1 130 mm[Hg] 86 mm[Hg] Lidia Sharp RN [place] [employer] [facility] 3 09:36:04 Date Recorded Body height Body mass index (BMI) Body weight Body temperature Provider Name and Address Organization Details Last Updated DateTime 05/12/2023 157.48 cm 27.4 kg/m2 08988.14 g 97.8 [degF] Huma Garíca RN [facility] [place] [facility] 05/12/2023 16:01:39 Date Recorded Body height Body mass index (BMI) Body weight Body temperature Heart rate Oxygen saturation Oxygen saturation in Arterial blood by Pulse oximetry Systolic blood pressure Diastolic blood pressure Provider Name and Address Organization Details Last Updated DateTime 3 157.48 cm 27.3 kg/m2 56840.3 6 g 97.7 [degF] 73 /min 98 % 98 % 116 mm[Hg] 69 mm[Hg] Ginger Davey MA [facility] [place] [facility] 3 11:11:31 Date Recorded Body height Body mass index (BMI) Body weight Body temperature Heart rate Respiratory rate Oxygen saturation Oxygen saturation in Arterial blood by Pulse oximetry Pain severity - 0-10 verbal numeric rating [Score] - Reported Systolic blood pressure Diastolic blood pressure Provider Name and Address Organization Details Last Updated DateTime 4 157.48 cm 27.5 kg/m2 08039.6 1 g 96.8 [degF] 73 /min 20 /min 97 % 97 % 3 124 mm[Hg] 86 mm[Hg] Lidia Sharp RN [facility] [place] [facility] 4 09:58:48 Date Recorded Body height Body mass index (BMI) Body weight Body temperature Provider Name and Address Organization Details Last Updated DateTime 06/07/2024 157.48 cm 27.3 kg/m2 49714.7 g 98.2 [degF] AMY George [facility] Elpas [facility] 06/07/2024 12:07:40 Social History Question Answer Notes LastModified by Organization Details LastModified Time Tobacco Smoking Status Never Smoker Not Available [employer] 12/29/2022 08:05:13 Do You Have An Advance Directive? No [id number] Information not available 12/29/2022 What Is Your Level Of Alcohol Consumption? Occasional MIGRATION.[id number] [id number] Information not available 12/29/2022 Is Blood Transfusion Acceptable In An Emergency? Yes Information not available 04/28/2023 What Is Your Level Of Caffeine Consumption? Occasional 1/2 Cup Coffee, Occ. Soda Information not available 04/28/2023 How Much Tobacco Do You Chew? None MIGRATION.[id number] [id number] Information not available 12/29/2022 What Is Your Code Status? Full Code Information not available 04/28/2023 In The 14 Days Before Symptom Onset, Have You Had Close Contact With A Laboratory-confi rmed COVID-19 While That Case Was Ill? No MIGRATION.0301 [id number] Information not available 12/29/2022 In The 14 Days Before Symptom Onset, Have You Had Close Contact With A Person Who Is Under Investigation For COVID-19 While That Person Was Ill? No MIGRATION.0301 [id number] Information not available 12/29/2022 Are You Currently Employed? Yes Information not available 04/28/2023 What Type Of Diet Are You Following? REGULAR MIGRATION.0301 [id number] Information not available 12/29/2022 Which Illicit Or Recreational Drugs Have You Used? None MIGRATION.0301 [id number] Information not available 12/29/2022 Do You Or Have You Ever Used E-cigarettes Or Vape? Never Used Electronic Cigarettes MIGRATION.0301 [id number] Information not available 12/29/2022 What Is The Highest Grade Or Level Of School You Have Completed Or The Highest Degree You Have Received? [id number] MIGRATION.0301 [id number] Information not available 12/29/2022 Have There Been Any Changes To Your Family Or Social Situation? No MIGRATION.0301 [id number] Information not available 12/29/2022 What Is The Fluoride Status Of Your Home? Unknown MIGRATION.0301 [id number] Information not available 12/29/2022 Do You Use Insect Repellent Routinely? No Information not available 04/28/2023 Where Do You Live? SingleLevelHouse MIGRATION.0301 [id number] Information not available 12/29/2022 Do You Have A Medical Power Of Bed Manager? No MIGRATION.0301 [id number] Information not available 12/29/2022 How Many Children Do You Have? 0 Information not available 04/28/2023 Do You Have Any Pets? Yes MIGRATION.0301 [id number] Information not available 12/29/2022 What Is Your Relationship Status? Single Information not available 04/28/2023 Do You Use Your Seat Belt Or Car Seat Routinely? Yes MIGRATION.030 [id number] Information not available 12/29/2022 Do You Have Smoke And Carbon Monoxide Detectors In Your Home? Yes MIGRATION.030 [id number] Information not available 12/29/2022 Are You Passively Exposed To Smoke? No MIGRATION.030 [id number] Information not available 12/29/2022 Do You Or Have You Ever Used Smokeless Tobacco? Never Used Smokeless Tobacco MIGRATION.[id number] Information not available 12/29/2022 Are There Any Smokers In Your House? No MIGRATION.030 [id number] Information not available 12/29/2022 Do You Participate In Social Media? Yes MIGRATION.[id number] Information not available 12/29/2022 Do You Feel Stressed (tense, Restless, Nervous, Or Anxious, Or Unable To Sleep At Night)? [id number] MIGRATION.[id number] Information not available 12/29/2022 Do You Use Sunscreen Routinely? Yes Information not available 04/28/2023 Have You Recently Traveled Abroad? No Information not available 04/28/2023 Sex: Male Functional Status Question Answer Note LastModified by Organizat ion Details LastModified Time What is your exercise level? Occasional Information not available 04/28/2023 Mental Status None recorded. Family History Relationship Description Onset Age of this Age Resolved Age Notes LastModified by Organization Details LastModified Time Father No current problems or disability [id number] Not available 12/29/2022 08:05:44 Mother No current problems or disability MIGRATION.398 [id number] Not available 12/29/2022 08:05:44 Notes:DAD SIDE OF FAMILY HAS HEART DISEASE MOTHER HAD CYSTS IN HER NECK, SIZE OF EGG Medical History Condition Response MRSA N SLEEP APNEA N ALLERGIES/HAYFEVER N LUNG DISEASE/DISORDER N INSOMNIA N RADIATION / CHEMOTHERAPY N COPD N HIGH CHOLESTEROL / HYPERLIPIDEMIA Y HYPERTHYROIDISM N BLOOD DISEASES N EAR OR HEARING PROBLEMS N HYPOTHYROIDISM N BACK / NECK PROBLEMS Y DEPRESSION (INCLUDING POST ) N HAVE YOU BEEN HOSPITALIZED OR SEEN IN [facility] ER IN THE PAST YEAR ? N STROKE/TIA N ULCERS N OBESITY N ANEURYSM N HISTORY WITH COMPLICATIONS WITH ANESTHES IA ? N NO SIGNIFICANT PAST MEDICAL HISTORY N USE OF BLOOD THINNERS N DIABETES, TYPE N PARATHYROID DISEASE N ENT N SEASONAL ALLERGIES N HEARTBURN / REFLUX N HEPATITIS / LIVER DISEASE N SLEEP DISORDER N SEIZURES/EPILEPSY N HEADACHES/MIGRAINES N CHF N PACEMAKER N DIZZINESS N AIDS/HIV N HEART DISEASE/HEART PROBLEMS N FRACTURES N HYPERTENSION N CANCER: SPECIFY N TOURETTE'S N BLOOD TRANSFUSION N ANEMIA/BLOOD DISORDER N ANESTHESIA COMPLICATIONS N CHRONIC EAR INFECTIONS N TUBERCULOSIS N Immunizations Vaccine Type Date Status Note Provider Nam e and Address Organization Details Recorded Time COVID-19, mRNA, LNP-S, PF, 30 mcg/0.3 mL dose 1 completed Not Available [facility] 12/29/2022 08:15:01 SARS-COV-2 (COVID-19) vaccine, UNSPECIFIED 1 completed Not Available [facility] 12/29/2022 08:15:01 SARS-COV-2 (COVID-19) vaccine, UNSPECIFIED 1 completed Not Available [facility] 12/29/2022 08:15:01 Tdap 7 completed Not Available [facility] 12/29/2022 08:15:02 Past Encounters Encounter ID Performer Location Encounter Start Date Encounter Closed Date Diagnosis/Indication Diagnosis SNOMED-CT Code Diagnosis ICD10 Code Diagnosis Note [id number] S_G [address] [address] 04/23/2021 00:00:00 04/23/2021 09:34:34 [id number] [facility] [place] [address] [place] [address] 05/12/2021 00:00:00 05/12/2021 12:27:04 [id number] S_[facility]G [facility] [address] [address] 12/08/2021 00:00:00 12/08/2021 14:32:29 [id number] S_G [address] [address] 04/27/2022 00:00:00 04/27/2022 08:38:42 [id number] S_[address] [address] 05/28/2022 00:00:00 05/28/2022 12:11:[id number] [address] 09/22/2022 00:00:00 09/22/2022 12:20:[id number] [address] 10/12/2022 00:00:00 10/12/2022 13:56:19 [id number] Lidia Escobar NP [address] [address] 04/28/2023 08:27:18 04/28/2023 09:17:38 Adult health examination 530706704 Z00.00 Encouraged well balanced meals, active lifestyle, and routine vision and dental appts. Hyperlipidemia 54596016 E78.5 Atorvastat in 20 mg po nightly. Gastroesop hageal reflux disease 263733104 K21.9 Pantoprazo le 40 mg po daily. Asthma 716381031 J45.90 9 Albuterol inhaler Anemia screening 0237175 07 Z13.0 Diabetes m ellitus screening 988216740 Z13.1 Thyroid di sorder screening 994796487 Z13.29 Screening for malignant neoplasm of colon 517040760 Z12.11 done in 2021 Grace on colonoscop y May 2022 ok.EGD [place] Urinary incontinence 165 850480 R32 Will refer to urology, could be BPH. Could be nothing. [id number] Lidia Escobar NP [address] [address] 05/06/2023 09:25:28 05/06/2023 10:20:11 Otalgia of right ear 5562068069 H92.01 monitor. NSAID, warm compress. [id number] Mello Corrales MD [facility] ENT Adrian Spivey [address] [place] [address] 05/12/2023 15:54:53 05/12/2023 16:15:04 Thyroid nodule 639600466 E04.1 [id number] Lidia Escobar NP [facility]_[address] [address] 06/24/2023 10:50:15 06/24/2023 11:38:06 Hyperlipidemia 46885778 E78.5 Atorvastat in 20 mg po nightly.Be consistent with medication use. States only 50% consistent with meds. Cough 20939733 R05.9 likely flare of acid reflux. Gastroesop hageal reflux disease 440599365 K21.9 Pantoprazo le 40 mg po daily.\Pep anh daily. [id number] Eran Dexter MD [address] [address] 12/27/2023 09:33:56 12/27/2023 10:19:02 Pain of right forearm 973703289 M79.631 Pain of ri ght elbow joint 1094012285 4810703 M25.521 Tendinitis 85018886 M77. 9 Rt forearm Benign pro static hyperplasia without outflow obstruction 424715065 N40.0 [id number] Mello Corrales MD [facility] [place] [address] [place] [address] 06/07/2024 11:57:10 06/08/2024 09:49:52 Thyroid nodule 506209566 E04.1 Health Concerns Section Related Observation LastModified by Organization Detai ls LastModified Time None Recorded Concern Status LastModified by Organization Details LastModified Time None Recorded Advance Directives Directive N: Payers Encounter Date Sequence Insurance Name Policy Number Policy Fajardo Covered Member ID Fajardo Member ID Guarantor Name 05/06/2023 1 [facility] [id number] Bereket C Silvano [id number] [employer] [place] 05/12/2023 1 [facility] [id number] Bere[employer] C [place] [id number] Bereket C Silvano 06/24/2023 1 [facility] [id number] Bereket C [place] [id number] Bereket C [place] 12/27/2023 1 [facility] [id number] Bereket C Silvano [id number] Bereket C Silvano 06/07/2024 1 [facility] [id number] Bereket C [place] [id number] Bereket Schaefer Notes Date Note Type Note Provider Name and Address Organization Details Recorded Time 05/06/2023 text/html Here for ear vinita n comes and goes. Mild pain. No dental issue.Was a pressure, fluid, and now pain.Tried doing ear cleaning drop, but not much relief when done 1 week ago. Lidia Escobar NP [address] [facility], [facility] [address], [place], [address], [employer] 05/06/2023 09:54:55 05/12/2023 text/html this patient was seen 2 years ago for subcentimeter thyroid cysts. He is here for follow-up ultrasound. The reports occasional pain and discomfort of the left anterior neck Mello Corrales MD [address] [facility], [facility] [address], [place], [address], [place] 05/12/2023 16:12:34 06/24/2023 text/html Here for few issues. left sided chest discomfort with chronic dry cough. Symptoms for few weeks.TIA in 2013 with short term memory loss , had been improving up until 3 weeks ago he noticed a marked decline again in his short term memory.States he remembered 6-9 mo until speech back to normal. Leaving the house thought about going to [employer], button battery and white out. Had a hard time recalling what he was to get from [employer] on entering the office. Lidia Escobar NP [address] [facility], [place] [address], [place], [address], [employer] 06/24/2023 11:34:46 12/27/2023 text/html ACV: C/o Rt forearm pain, tingling & numbness for last 1 week. At times, he has trouble in gripping objects due to pain. No issues from Rt elbow up. Pt has blood draw from Rt AC 1 week ago with his Urologist's office and since than, he has this pain. Pt says they were able to draw his lab on the same attempt. Pt is f/u with them for BPH. He has contacted them about this and they asked him to get checked with PCP. Pt denies any nec pain, Rt arm/shoulder pain. Pt denies any recent fall/trauma. Pt has old bruises over his Rt forearm and pt says its from him messing with his [place] martinez dog. Eran Dexter MD [address], [facility] [address], [place], [address], [employer] 12/27/2023 10:16:04 06/07/2024 text/html the patient had a thyroid ultrasound this month which revealed 3 4 mm nodules which were not TI-RADS scored. We did review the ultrasounds from 11/19/2021 and 23 Mello Corrales MD [address], [facility] [address], [place], [address], [employer] 06/07/2024 12:53:47
[2025-01-05 09:36] VITALS: BP 117/78; PULSE 76; RESP 18; TEMP 36.3; O2SAT 100
--- NOTE | 2025-01-05 10:17 | ED.URI ---
HPI - URI/Sore Throat General Chief Complaint: Upper Respiratory Infection Stated Complaint: cough Source: patient Mode of arrival: ambulatory Limitations: no limitations History of Present Illness HPI Narrative: 49-year-[facility] complaints of started with itchy and watery eyes 6 days ago. Patient reports that he then started with dry cough and chest tightness 3 days ago. Patient reports that he has a history of allergies and asthma and has tried taking Claritin for a few days with little relief. Patient reports he also has been using inhaler as needed but continues with a dry cough and minimal chest tightness. Patient denies fevers, shortness of breath, wheezing, nausea vomiting or diarrhea. MD elicited complaint: cough Onset (ago): day(s) () Able to tolerate fluids by mouth: Yes Related Data Home Medications ?Medication ?Instructions ?Recorded ?Confirmed ?Last Taken ?Type aspirin 81 mg tablet,delayed 81 mg PO DAILY 02/08/20 10/06/24 12/13/21 History release (Alejo Low Dose Aspirin) Allergies Allergy/AdvReac Type Severity Reaction Status Date / Time ampicillin Allergy Unknown Other Verified 01/05/25 09:50 Penicillins Allergy Unknown unknown Verified 01/05/25 09:50 Review of Systems Constitutional: Constitutional: Denies chills, Denies fatigue, Denies fever(s) and Denies weakness ENT: Denies dizziness, Denies epistaxis and Denies nasal congestion Respiratory: Respiratory: Reports chest congestion, Reports cough, Denies dyspnea and Denies wheezing Gastrointestinal: Gastrointestinal: Denies diarrhea, Denies nausea and Denies vomiting Integumentary/Breasts: Skin/Breast: Denies erythema and Denies rash Neurologic: Denies syncope and Denies headache(s) [facility] Past Medical History Medical History Magdaleno's esophagus Overweight History of CVA (cerebrovascular accident) Surgical History Surgical History H/O removal of cyst Family History Family History Mother Asthma Cancer Father Cancer Grandparent Alcoholism Cancer Heart disease Social History Social History Smoking status: Never smoker Alcohol intake: current Drinks per week: 7 Alcohol use details: occasionally Substance use: unknown Substance use type: does not use Do You Feel Safe in your Home?: Yes Lack of Transportation: No Lack of Food: Never True Current Housing: I Have Housing Concerned About Future Housing: No Difficulty Paying Gas/Electric Bills: No Difficulty Paying for Meds: No Currently Unemployed: No Education: Don't Know Living arrangements: with family Additional living arrangements comments: Single Occupation/Education: occupation Spiritual care concerns: No Agree to blood products: Yes Comments At time of signature, I agree with nursing past medical, surgical, social and family history. There is no relevant family history pertinent to the presenting complaint. Exam Const: General: healthy appearing and no acute distress Nutritional Appearance: well nourished Orientation/consciousness: patient oriented x3 Limitations: no limitations HENMT: Head: normal to inspection Ears: external ears normal and TM's normal bilaterally Face/Nose/Sinus: Normal external nose present and Normal nares present Face and sinus: normal facial exam Mouth: Yes Normal oral and palatal mucosa present and Yes moist mucous membranes Teeth and gingiva: dentition normal Throat: posterior oropharynx normal and uvula midline Eyes: Conjunctivae: conjunctivae normal Neck: Neck: normal visual inspection Resp: Effort & Inspection: normal respiratory effort and not labored Auscultation: clear to auscultation bilaterally, no crackles, no rales, no rhonchi and no wheezes Cardio: Rate: regular rate Rhythm: regular rhythm Heart sounds: no murmurs Skin: General skin exam: normal color Rashes: no rashes Wounds: no wounds Neuro: General: patient oriented x3 and moves all extremities Speech: normal speech Gait exam (Neuro): Normal gait present Psych: Affect: normal affect Attitude: cooperative Course Course Level of Care: Express Care Visit Vital Signs Vital signs: Vital Signs Temperature 36.3 C L 01/05/25 09:36 Pulse Rate 76 01/05/25 09:36 Respiratory Rate 18 01/05/25 09:36 Blood Pressure 117/78 01/05/25 09:36 Pulse Oximetry 100 01/05/25 09:36 Oxygen Delivery Room Air 01/05/25 09:36 Temperature 36.3 C L 01/05/25 09:36 Pulse Rate 76 01/05/25 09:36 Respiratory Rate 18 01/05/25 09:36 Blood Pressure 117/78 01/05/25 09:36 Pulse Oximetry 100 01/05/25 09:36 Oxygen Delivery Room Air 01/05/25 09:36 MDM - URI/Sore Throat MDM Narrative Medical decision making narrative: Encouraged patient to take antihistamines such as Claritin or Nika daily. Encouraged patient to take prednisone as prescribed. Encouraged patient to continue to use inhaler as needed and follow up with primary care provider in 48 hours. Differential Diagnosis Differential diagnosis: Likely otitis media, sinusitis and bronchitis Critical Care Time Critical Care Time Critical Care Time: No Discharge Plan Discharge Clinical Impression: Viral infection Patient Disposition: Home, Self-Care Condition: Stable Instructions: Viral Syndrome (ED) Additional Instructions: Take Claritin or Nika daily Continue inhaler as needed Take prednisone as prescribed Take benzonatate as needed for cough Follow-up with primary care provider in 48 hours Proceed to the emergency room if symptoms worsen Patient Language: Mozambican Prescriptions: New prednisone 20 mg tablet 40 mg PO DAILY 5 Days Qty: 10 0RF benzonatate 100 mg capsule 100 mg PO BID PRN (Reason: cough) Qty: 20 0RF No Action aspirin [Alejo Low Dose Aspirin] 81 mg Tablet,Delayed Release (Dr/Ec) 81 mg PO DAILY pantoprazole 40 mg tablet,delayed release (DR/EC) 40 mg PO DAILY Qty: 90 2RF atorvastatin 20 mg tablet 20 mg PO DAILY Qty: 90 1RF finasteride 5 mg tablet 5 mg PO DAILY Qty: 90 0RF triamcinolone acetonide 0.5 % cream 1 applic topical DAILY Qty: 15 0RF Airsupra 90-80 mcg/actuation HFA aerosol inhaler 2 inh inhalation ONCE Qty: 32.1 2RF Rx Instructions: as a single dose; may repeat up to 6 doses per day (12 inhalations) Follow-up/Referrals: Lidia Escobar APRN [Primary Care Provider] - Time of Disposition: 10:23
== END 2025-01-05 10:25 | disposition home or self-care (01) ==
PROVIDERS: Emergency Provider Nurse Practitioner Family; PCP Nurse Practitioner Family
DX: B34.9 Viral infection, unspecified (principal); K22.70 Barrett's esophagus without dysplasia; J45.909 Unspecified asthma, uncomplicated; Z86.73 Personal history of transient ischemic attack (TIA), and cerebral infarction without residual deficits; Z79.82 Long term (current) use of aspirin
CPT/HCPCS: 99213; G0463

== ENCOUNTER 2025-03-21 00:34 | Day surgery (SDC) | payer OTHER, SELFPAY ==
[2025-03-13 15:21] VITALS: BMI 28.3
--- OUTSIDE RECORDS SUMMARY | 2025-03-21 00:36 | XMS_ITS | Data Portability ---
Author Organization [place] [employer], Main Office Address [address] [place] [address] Assessment Encounter Date Assessment Date Assessment LastModified by Organization Details LastModified Time 12/27/2023 12/27/2023 D/w pt about his findings and further plan of care. Explained about different options for him. Will do x-ray. Meds as directed. RICE explained. Educated pt about alarming symptoms to monitor at home. F/u in 2-3 weeks as directed. [email or web address] Not available 12/27/2023 10:15:05 Plan of Treatment Reminders Order Date Submit Date Provider Last Modified By Organization Details Last Modified Time Details Appointments None recorded. Lab lipid panel, serum 023 023 [email or web address] (Lab), [address] [place], [address], 3 07:56:44 Referral None recorded. Procedures None recorded. Surgeries None recorded. Imaging XR, elbow, 3 or more view - Pt over the blood draw site 1 week ago. 024 024 [email or web address] Not available 4 14:33:26 Medication Orders Medrol (Gianni) 4 mg tablets in a dose pack 024 024 [id number], [address], [place], [id number], 4 12:08:51 Pepcid 40 mg tablet 023 023 [id number], [address], [place], [id number], 11:29:50 Patient TargetsNo targets recorded. Patient Instructions Encounter Date Encounter Id Patient Instructions Last Modified By Organization Details Last Modified Time 06/24/2023 [id number] prn. [email or web address] Not available 06/24 11:34:34 06/07/2024 [id number] he will have a a n ultrasound in 1 year. [email or web address] Not available 06/07/2024 12:53:23 Reason for Referral None Reported. Results Created Date Observation Date Name Description Value Unit Range Abnormal Flag Note LastModifiedBy Organization Detail LastModifiedTime 04/28/2004/28/2023 CBC/C OMPLE TE BLD COUNT W/DIF F white blood cells 6.6 x10'3 /uL 4.2-10 .8 Not Available [facility] (Lab) [address] [place], [address], 04/28/2023 14:09:47 04/28/20 23 04/28/2023 CBC/C OMPLE TE BLD COUNT W/DIF F red blood cells 4.85 x10'6 /uL 4.10-5 .80 Not Available [facility] (Lab) [address] [place], [address], 04/28/2023 14:09:47 04/28/20 23 04/28/2023 CBC/C OMPLE TE BLD COUNT W/DIF F hemoglobin 15.0 g/dL 13.2-1 7.0 Not Available [facility] (Lab) [address] [place], [address], 04/28/2023 14:09:47 04/28/20 23 04/28/2023 CBC/C OMPLE TE BLD COUNT W/DIF F hematocrit 42.4 % 39.3-5 0.0 Not Available [facility] (Lab) [address] [place], [address], 04/28/2023 14:09:47 04/28/20 23 04/28/2023 CBC/C OMPLE TE BLD COUNT W/DIF F mean red cell volume 87.4 fL 80.0-9 7.0 Not Available [facility] (Lab) [address] [place], [address], 04/28/2023 14:09:47 04/28/20 23 04/28/2023 CBC/C OMPLE TE BLD COUNT W/DIF F mean red cell hemoglobin 30.9 pg 27.0-3 3.0 Not Available [facility] (Lab) [address] [place], [address], 04/28/2023 14:09:47 04/28/20 23 04/28/2023 CBC/C OMPLE TE BLD COUNT W/DIF F mean RBC HGB concentratio n 35.4 g/dL 31.0-3 6.0 Not Available [facility] (Lab) [address] [place], [address], 04/28/2023 14:09:47 04/28/20 23 04/28/2023 CBC/C OMPLE TE BLD COUNT W/DIF F red cell distribution width 15.1 % 11.8-1 5.5 Not Available [facility] (Lab) [address] [place], [address], 04/28/2023 14:09:47 04/28/20 23 04/28/2023 CBC/C OMPLE TE BLD COUNT W/DIF F platelets 324 x10'3 /uL 150-40 0 Not Available [facility] (Lab) [address] [place], [address], 04/28/2023 14:09:47 04/28/20 23 04/28/2023 CBC/C OMPLE TE BLD COUNT W/DIF F mean platelet volume 11.0 fL 9.0-12 .4 Not Available [facility] (Lab) [address] [place], [address], 04/28/2023 14:09:47 04/28/20 23 04/28/2023 CBC/C OMPLE TE BLD COUNT W/DIF F neutrophils 62.3 % 39.0-7 2.0 Not Available [facility] (Lab) [address] [place], [address], 04/28/2023 14:09:47 04/28/20 23 04/28/2023 CBC/C OMPLE TE BLD COUNT W/DIF F lymphocytes 25.1 % 16.0-4 7.0 Not Available [facility] (Lab) [address] [place], [address], 04/28/2023 14:09:47 04/28/20 23 04/28/2023 CBC/C OMPLE TE BLD COUNT W/DIF F monocytes 7.1 % 5.0-12 .0 Not Available [facility] (Lab) [address] [place], [address], 04/28/2023 14:09:47 04/28/20 23 04/28/2023 CBC/C OMPLE TE BLD COUNT W/DIF F eosinophils 4.1 % 1.0-7. 0 Not Available [facility] (Lab) [address] [place], [address], 04/28/2023 14:09:47 04/28/20 23 04/28/2023 CBC/C OMPLE TE BLD COUNT W/DIF F basophils 0.8 % 0.0-2. 0 Not Available [facility] (Lab) [address] [place], [address], 04/28/2023 14:09:47 04/28/20 23 04/28/2023 CBC/C OMPLE TE BLD COUNT W/DIF F immature granulocytes 0.6 % 0.00-0 .50 high Not Available [facility] (Lab) [address] [place], [address], 04/28/2023 14:09:47 06/29/04/28/2023 CBC/C OMPLE TE BLD COUNT W/DIF F neutrophils, absolute count 4.12 x10'3 /uL 1.5-8. 0 Not Available [facility] (Lab) [address] [place], [address], 04/28/2023 14:09:47 04/28/20 23 04/28/2023 CBC/C OMPLE TE BLD COUNT W/DIF F lymphocytes, absolute count 1.66 x10'3 /uL 1.07-3 .43 Not Available [facility] (Lab) [address] [place], [address], 04/28/2023 14:09:47 04/28/2004/28/2023 CBC/C OMPLE TE BLD COUNT W/DIF F monocytes, absolute count 0.47 x10'3 /uL 0.29-0 .99 Not Available [facility] (Lab) [address] [place], [address], 04/28/2023 14:09:47 04/28/20 23 04/28/2023 CBC/C OMPLE TE BLD COUNT W/DIF F eosinophils, absolute count 0.27 x10'3 /uL 0.02-0 .53 Not Available [facility] (Lab) [address] [place], [address], 04/28/2023 14:09:47 04/28/2004/28/2023 CBC/C OMPLE TE BLD COUNT W/DIF F basophils, absolute count 0.05 x10'3 /uL 0.01-0 .08 Not Available [facility] (Lab) [address] [place], [address], 04/28/2023 14:09:47 04/28/2004/28/2023 CBC/C OMPLE TE BLD COUNT W/DIF F immature granulocytes ,absolute 0.04 x10'3 /uL 0.00-0 .05 Not Available [facility] (Lab) [address] [place], [address], 04/28/2023 14:09:47 04/28/20 23 04/28/2023 CBC/C OMPLE TE BLD COUNT W/DIF F nucleated red blood cells 0.0 % -0 Not Available [facility] (Lab) [address] [place], [address], 04/28/2023 14:09:47 04/28/20 23 04/28/2023 CBC/C OMPLE TE BLD COUNT W/DIF F NRBC# 0.00 x10'3 /uL Not Available [facility] (Lab) [address] [place], [address], 04/28/2023 14:09:47 04/28/20 23 04/28/2023 LIPID PANEL cholesterol 203 mg/dL 140-19 9 high NIH MAURA NSUS RECOM MENDA TION FOR SUSHIL STERO L: ADULT CHILD LOW RISK: <200 <170 BORDE RLINE : <200- 239 ----- HIGH RISK: >240 >200 Not Available [facility] (Lab) [address] [place], [address], 04/28/2023 14:24:50 04/28/2004/28/2023 LIPID PANEL triglyceride s 273 mg/dL 0-150 high NIH MAURA NSUS REPOR T RECOM MENDA TION FOR TRIGL YCERI YASMINE: ADULT CHILD LOW RISK: <150 ----- BODER LINE: 150-1 99 ----- HIGH RISK: >200 ----- Not Available [facility] (Lab) [address] [place], [address], 04/28/2023 14:24:50 04/28/2004/28/2023 LIPID PANEL HDL cholesterol 44 mg/dL 40- Not Available [facility] (Lab) [address] [place], [address], 04/28/2023 14:24:50 04/28/2004/28/2023 LIPID PANEL LDL cholesterol, [...] WILL NOT BE REPOR DELONTE. Not Available [facility] (Lab) [address] [place], [address], 04/28/2023 14:24:50 04/28/2004/28/2023 COMPR EHENS LAZARA METAB OLIC PANEL sodium 140 mmol/ L 137-14 5 Not Available [facility] (Lab) [address] [place], [address], 04/28/2023 14:24:56 04/28/20 23 04/28/2023 COMPR EHENS LAZARA METAB OLIC PANEL potassium 3.8 mmol/ L 3.5-5. 1 Not Available [facility] (Lab) [address] [place], [address], 04/28/2023 14:24:56 04/28/20 23 04/28/2023 COMPR EHENS LAZARA METAB OLIC PANEL chloride 103 mmol/ L 98-107 Not Available [facility] (Lab) [address] [place], [address], 04/28/2023 14:24:56 04/28/20 23 04/28/2023 COMPR EHENS LAZARA METAB OLIC PANEL carbon dioxide 25 mmol/ L 22-30 Not Available [facility] (Lab) [address] [place], [address], 04/28/2023 14:24:56 04/28/20 23 04/28/2023 COMPR EHENS LAZARA METAB OLIC PANEL anion gap 15.8 mmol/ L 14-22 Not Available [facility] (Lab) [address] [place], [address], 04/28/2023 14:24:56 04/28/20 23 04/28/2023 COMPR EHENS LAZARA METAB OLIC PANEL glucose 101 mg/dL 70-99 high Not Available [facility] (Lab) [address] [place], [address], 04/28/2023 14:24:56 04/28/20 23 04/28/2023 COMPR EHENS LAZARA METAB OLIC PANEL BUN 10 mg/dL 8-19 Not Available [facility] (Lab) [address] [facility] [place], [address], 04/28/2023 14:24:56 04/28/20 23 04/28/2023 COMPR EHENS LAZARA METAB OLIC PANEL creatinine 0.73 mg/dL 0.66-1 .25 Not Available [facility] (Lab) [address] [place], [address], 04/28/2023 14:24:56 04/28/20 23 04/28/2023 COMPR EHENS LAZARA METAB OLIC PANEL GFR >60 Refer ence Range : [place] ge GFR Healt hy Adult : >60 [...] calcu latsteve is avail able on the [facility] websi te: [email or web address] :[email or web address] rg/pr ofess ional s/kdo qi/gf r_cal culat or Not Available [facility] (Lab) [address] [place], [address], 04/28/2023 14:24:56 04/28/20 23 04/28/2023 COMPR EHENS LAZARA METAB OLIC PANEL alkaline phosphatase 64 U/L 38-126 Not Available [facility] (Lab) [address] [place], [address], 04/28/2023 14:24:56 04/28/20 23 04/28/2023 COMPR EHENS LAZARA METAB OLIC PANEL alanine aminotransfe rase 44 U/L 0-50 Not Available [facility] (Lab) [address] [place], [address], 04/28/2023 14:24:56 04/28/20 23 04/28/2023 COMPR EHENS LAZARA METAB OLIC PANEL aspartate aminotransfe rase 40 U/L 15-46 Not Available [facility] (Lab) [address] [place], [address], 04/28/2023 14:24:56 04/28/20 23 04/28/2023 COMPR EHENS LAZARA METAB OLIC PANEL bilirubin, total 1.20 mg/dL 0.20-1 .30 Not Available [facility] (Lab) [address] [place], [address], 04/28/2023 14:24:56 04/28/20 23 04/28/2023 COMPR EHENS LAZARA METAB OLIC PANEL calcium 9.1 mg/dL 8.4-10 .2 Not Available [facility] (Lab) [address] [place], [address], 04/28/2023 14:24:56 04/28/20 23 04/28/2023 COMPR EHENS LAZARA METAB OLIC PANEL total protein 7.5 g/dL 6.3-8. 2 Not Available [facility] (Lab) [address] [place], [address], 04/28/2023 14:24:56 04/28/20 23 04/28/2023 COMPR EHENS LAZARA METAB OLIC PANEL albumin 4.7 g/dL 3.4-5. 0 Not Available [facility] (Lab) [address] [place], [address], 04/28/2023 14:24:56 04/28/20 23 04/28/2023 COMPR EHENS LAZARA METAB OLIC PANEL globulin 2.8 g/dL 2.6-4. 2 Not Available [facility] (Lab) [address] [place], [address], 04/28/2023 14:24:56 04/28/20 23 04/28/2023 COMPR EHENS LAZARA METAB OLIC PANEL A/G ratio 1.7 ratio 1.0-2. 0 Not Available [facility] (Lab) [address] [place], [address], 04/28/2023 14:24:56 04/28/2004/28/2023 TSH W/REF MELISSA FT4 TSH with reflex free T4 2.390 uIU/m L 0.465- 4.680 Not Available [facility] (Lab) [address] [place], [address], 04/28/2023 14:49:10 04/28/20 23 04/28/2023 VITAM IN B12 (JAROD ODILON ) vb12 556 pg/mL 239-93 1 Not Available [facility] (Lab) [address] [place], [address], 04/28/2023 15:22:53 04/28/20 23 04/29/2023 HEMOG LOBIN A1C HA1C 3.9 % 4.0-6. 0 low Diabe chad Scree laura Crite phyllis: <5.7% Consi stent with absen ce of diabe chad 5.7-6 .4% Consi stent with incre ased risk for diabe chad (pred iabet es) >OR=6 .5% Consi stent with diabe chad REFER ENCE: Diabe chad Care 2016, 39(Castellanos ppl.1 ):s13 -s22 Not Available [facility] ([facility]) [address] [place], [address], 04/29/2023 11:14:33 05/18/20 23 05/18/2023 US, thyro id No observ ation record ed. [email or web address] [facility] [address], [place], [address], 05/18/2023 14:20:29 05/19/20 23 05/18/2023 US, thyro id No observ ation record ed. [address], [place], [address], 05/19/2023 10:50:05 05/25/20 23 US, thyro id No observ ation record ed. [address] [facility] [address], [place], [address], 05/18/2024 08:59:03 12/27/19 24 12/27/2023 XR, elbow , 3 or more view No observ ation record ed. [facility] [address], [place], [address], 12/27/2023 16:26:35 05/31/20 24 05/31/2024 US, thyro id No observ ation record ed. [email or web address] [facility] - [facility] [address], [place], [address], 06/01/2024 15:14:15 05/31/20 24 05/31/2024 US, thyro id No observ ation record ed. [email or web address] [facility] [address], [place], [address], 06/05/2024 10:22:08 06/06/20 24 06/06/2024 US, thyro id No observ ation record ed. [facility] [address], [place], [address], 06/06/2024 16:56:42 Result Notes None recorded. Problems Name Problem SNOMED Code Status Onset Date Resolution Date Notes Provider Name and Address Organization Details Recorded Time Exertional dizziness 143454763 Active Not Available [facility] 3 08:10:01 Infection of skin 310350218 Active Not Available [facility] 3 08:10:01 History of transient ischemic attack 170063582 Active 2018 Not Available [facility] 3 08:10:01 Backache 051136929 Active 2021 Not Available [facility] 3 08:10:02 Asthma 003815365 Active Not Available [facility] 3 08:10:02 Gastroesop hageal reflux disease 046508658 Active Not Available [facility] 3 08:10:02 Mass of body structure 834173103 Active Not Available [facility] 3 08:10:02 Sinusitis 81768687 Active Not Available [facility] 3 08:10:02 Vertigo 099442969 Active Not Available [facility] 3 08:10:02 Hyperlipid emia 87083914 Active 2017 Not Available [facility] 3 08:10:02 Cyst of thyroid 94420838 Active 2018 Not Available [facility] 3 08:10:02 Urinary incontinen ce 781327199 Active 2022 Lidia Escobar NP [address] [facility] [address], [place], [address] , [facility] 3 08:54:05 Otalgia of right ear 7185742171 Active 2022 Lidia Escobar NP [address], [place], [address] , [facility] 3 09:54:30 Thyroid nodule 793049617 Active 2022 Huma García RN [facility] [place] - [facility] 3 16:09:25 Thyroid nodule 084317307 Active 2022 Mello Corrales MD [address], [place], [address] , [facility] 3 16:11:58 Cough 95036306 Active 2022 Lidia Escobar NP [address], [place], [address] , [facility] 3 11:26:31 Pain of right forearm 666871545 Active 2023 Eran Dexter MD [address], [place], [address] , [facility] 4 10:04:00 Pain of right elbow joint 6497880377450 9109 Active 2023 Eran Dexter MD [address], [place], [address] , [facility] 4 10:04:08 Tendinitis 02887130 Active 2023 Eran Dexter MD [address], [place], [address] , [facility] 4 10:05:08 Benign prostatic hyperplasi a without outflow obstructio n 124356200 Active 2023 Eran Dexter MD [address], [place], [address] , [facility] 4 10:07:05 Problem Notes None recorded. Procedures Surgical History Date Name Laterality Status Provider Name and Address Organization Details Recorded Time 2 EGD completed Not Available [facility] 3 08:05:43 Cyst Removal completed AMY Segovia [place] - [facility] 06/07/2024 12:10:32 Imaging Results Imaging Date Name Status LastModified by Organiz ation Details LastModified Time 05/18/2023 US, thyroid completed [email or web address] [facility] [address] [address] [place] [address], [address], 05/18/2023 14:20:29 05/18/2023 US, thyroid completed [email or web address] [facility] [address] [place] [address], [address], 05/19/2023 10:50:05 05/25/2023 US, thyroid completed [email or web address] [facility] [address] [place] [address], [address], 05/18/2024 08:59:03 12/27/2023 XR, elbow, 3 or more view completed [facility] [address], [place], [address], 12/27/2023 16:26:35 05/31/2024 US, thyroid completed [email or web address] [facility] - Breast Ctr [address], [place], [address], 06/01/2024 15:14:15 05/31/2024 US, thyroid completed [email or web address] [facility] [address] [place] [address], [address], 06/05/2024 10:22:08 06/06/2024 US, thyroid completed [facility] - Breast Ctr [address], [place], [address], 06/06/2024 16:56:42 Procedure Notes None recorded. Medical Equipment None Reported. Allergies Allergen ID Allergen Name Allergen Category Reaction Reaction Severity Criticality Documentation Date Start Date Code Code System Note Provider Name and Address Organization Details Recorded Time Product containin g penicilli n (product) medicatio n Not available Not available Not available 12/29/2022 14953 8001 SNOMED Not Available [facility] 3 08:15:22 ampicilli n medicatio n Not available Not available Not available 12/29/2022 733 RxNorm Not Available [facility] 3 08:15:22 Medications Name Sig Start Date [...] Updated DateTime 3 157.48 cm 27.3 kg/m2 27126.3 1 g 95.9 [degF] 79 /min 16 /min 97 % 97 % 130 mm[Hg] 86 mm[Hg] Lidia Sharp RN [place] - [facility] 3 09:36:04 Date Recorded Body height Body mass index (BMI) Body weight Body temperature Provider Name and Address Organization Details Last Updated DateTime 05/12/2023 157.48 cm 27.4 kg/m2 46229.14 g 97.8 [degF] Huma García RN [facility] 05/12/2023 16:01:39 Date Recorded Body height Body mass index (BMI) Body weight Body temperature Heart rate Oxygen saturation Oxygen saturation in Arterial blood by Pulse oximetry Systolic blood pressure Diastolic blood pressure Provider Name and Address Organization Details Last Updated DateTime 3 157.48 cm 27.3 kg/m2 58220.3 6 g 97.7 [degF] 73 /min 98 % 98 % 116 mm[Hg] 69 mm[Hg] Ginger Davey MA [facility] 11:11:31 Date Recorded Body height Body mass index (BMI) Body weight Body temperature Heart rate Respiratory rate Oxygen saturation Oxygen saturation in Arterial blood by Pulse oximetry Systolic blood pressure Diastolic blood pressure Provider Name and Address Organization Details Last Updated DateTime 4 157.48 cm 27.5 kg/m2 51175.6 1 g 96.8 [degF] 73 /min 20 /min 97 % 97 % 124 mm[Hg] 86 mm[Hg] Lidia Sharp RN [facility] 4 09:58:48 Date Recorded Body height Body mass index (BMI) Body weight Body temperature Provider Name and Address Organization Details Last Updated DateTime 06/07/2024 157.48 cm 27.3 kg/m2 85815.7 g 98.2 [degF] AMY George [facility] 06/07/2024 12:07:40 Social History Question Answer Notes LastModified by Organizat ion Details LastModified Time Tobacco Smoking Status Never Smoker Not Available [facility] 12/29/2022 08:05:13 Do You Have An Advance Directive? No [id number] Information not available 12/29/2022 Is Blood Transfusion Acceptable In An Emergency? Yes Information not available 04/28/2023 What Is Your Level Of Caffeine Consumption? Occasional 1/2 Cup Coffee, Occ. Soda Information not available 04/28/2023 How Much Tobacco Do You Chew? None [id number] Information not available 12/29/2022 What Is Your Code Status? Full Code Information not available 04/28/2023 In The 14 Days Before Symptom Onset, Have You Had Close Contact With A Laboratory-confi rmed COVID-19 While That Case Was Ill? No [id number] Information not available 12/29/2022 In The 14 Days Before Symptom Onset, Have You Had Close Contact With A Person Who Is Under Investigation For COVID-19 While That Person Was Ill? No MIGRATION.[id number] Information not available 12/29/2022 What Type Of Diet Are You Following? REGULAR [id number].[id number] [id number] Information not available 12/29/2022 Which Illicit Or Recreational Drugs Have You Used? None MIGRATION.68837 [id number] Information not available 12/29/2022 What Is The Highest Grade Or Level Of School You Have Completed Or The Highest Degree You Have Received? [id number] MIGRATION.23827 11565 Information not available 12/29/2022 Have There Been Any Changes To Your Family Or Social Situation? No MIGRATION.81482 [id number] Information not available 12/29/2022 What Is The Fluoride Status Of Your Home? Unknown MIGRATION.17139 [id number] Information not available 12/29/2022 Do You Use Insect Repellent Routinely? No Information not available 04/28/2023 Where Do You Live? [place]House MIGRATION.[id number] Information not available 12/29/2022 Do You Have A Medical Power Of Bladder Tier? No MIGRATION.44764 10173 Information not available 12/29/2022 How Many Children Do You Have? 0 Information not available 04/28/2023 Do You Have Any Pets? Yes MIGRATION.72074 [id number] Information not available 12/29/2022 What Is Your Relationship Status? Single Information not available 04/28/2023 Do You Use Your Seat Belt Or Car Seat Routinely? Yes MIGRATION.11978 80691 Information not available 12/29/2022 Do You Have Smoke And Carbon Monoxide Detectors In Your Home? Yes MIGRATION.22651 75274 Information not available 12/29/2022 Are You Passively Exposed To Smoke? No MIGRATION.27043 50475 Information not available 12/29/2022 Are There Any Smokers In Your House? No MIGRATION.88628 92801 Information not available 12/29/2022 Do You Participate In Social Media? Yes MIGRATION.69970 61621 Information not available 12/29/2022 Do You Use Sunscreen Routinely? Yes Information not available 04/28/2023 Have You Recently Traveled Abroad? No Information not available 04/28/2023 Sex: Male Functional Status Question Answer Note LastModified by Organizat [email or web address] Details LastModified Time What is your level of alcohol consumption? Occasional [id number] Information not available 12/29/2022 Do you or have you ever used smokeless tobacco? Never used smokeless tobacco MIGRATION.[id number] 026 Information not available 12/29/2022 Are you currently employed? Yes Information not available 04/28/2023 Do you or have you ever used e-cigarettes or vape? Never used electronic cigarettes MIGRATION.[id number] 026 Information not available 12/29/2022 What is your exercise level? Occasional Information not available 04/28/2023 Mental Status Question Answer Note LastModified by Organizat [email or web address] Details LastModified Time Do you feel stressed (tense, restless, nervous, or anxious, or unable to sleep at night)? [id number] [id number] Information not available 12/29/2022 Family History Relationship Description Onset Age of this Age Resolved Age Notes LastModified by Organization Details LastModified Time Father No current problems or disability [id number].[id number] Not available 12/29/2022 08:05:44 Mother No current problems or disability MIGRATION.085 [id number] Not available 12/29/2022 08:05:44 Notes:DAD SIDE OF FAMILY HAS HEART DISEASE MOTHER HAD CYSTS IN HER NECK, SIZE OF EGG Medical History Condition Response MRSA N SLEEP APNEA N ALLERGIES/HAYFEVER N LUNG DISEASE/DISORDER N INSOMNIA N COPD N RADIATION / CHEMOTHERAPY N HIGH CHOLESTEROL / HYPERLIPIDEMIA Y HYPERTHYROIDISM N BLOOD DISEASES N EAR OR HEARING PROBLEMS N HYPOTHYROIDISM N DEPRESSION (INCLUDING POST ) N BACK / NECK PROBLEMS Y HAVE YOU BEEN HOSPITALIZED OR SEEN IN [facility] IN THE PAST YEAR ? N STROKE/TIA N ULCERS N OBESITY N ANEURYSM N HISTORY WITH COMPLICATIONS WITH ANESTHES IA ? N USE OF BLOOD THINNERS N NO SIGNIFICANT PAST MEDICAL HISTORY N DIABETES, TYPE N PARATHYROID DISEASE N ENT N SEASONAL ALLERGIES N HEARTBURN / REFLUX N HEPATITIS / LIVER DISEASE N SLEEP DISORDER N SEIZURES/EPILEPSY N HEADACHES/MIGRAINES N CHF N PACEMAKER N DIZZINESS N HEART DISEASE/HEART PROBLEMS N AIDS/HIV N FRACTURES N HYPERTENSION N CANCER: SPECIFY N TOURETTE'S N BLOOD TRANSFUSION N ANEMIA/BLOOD DISORDER N ANESTHESIA COMPLICATIONS N CHRONIC EAR INFECTIONS N TUBERCULOSIS N Immunizations Vaccine Type Date Status Note Provider Nam e and Address Organization Details Recorded Time COVID-19, mRNA, LNP-S, PF, 30 mcg/0.3 mL dose 1 completed Not Available [facility] 12/29/2022 08:15:01 SARS-COV-2 (COVID-19) vaccine, UNSPECIFIED 1 completed Not Available [facility] 12/29/2022 08:15:01 SARS-COV-2 (COVID-19) vaccine, UNSPECIFIED 1 completed Not Available [facility] 12/29/2022 08:15:01 Tdap 7 completed Not Available [facility] 12/29/2022 08:15:02 Past Encounters Encounter ID Performer Location Encounter Start Date Encounter Closed Date Diagnosis/Indication Diagnosis SNOMED-CT Code Diagnosis ICD10 Code Diagnosis Note [id number] Eran Dexter MD [address] [address] 04/23/2021 00:00:00 04/23/2021 09:34:34 [id number] Mello Corrales MD [facility] [place] [address] [place] [address] 05/12/2021 00:00:00 05/12/2021 12:27:04 [id number] Eran Dexter MD [address] [address] 12/08/2021 00:00:00 12/08/2021 14:32:29 [id number] Eran Dexter MD [address] [address] 04/27/2022 00:00:00 04/27/2022 08:38:42 [id number] Lidia Escobar NP [address] [address] 05/28/2022 00:00:00 05/28/2022 12:11:37 [id number] Eran Dexter MD [address] [address] 09/22/2022 00:00:00 09/22/2022 12:20:55 [id number] Eran Dexter MD [address] [address] 10/12/2022 00:00:00 10/12/2022 13:56:19 [id number] Lidia Escobar NP [address] [address] 04/28/2023 08:27:18 04/28/2023 09:17:38 Adult health examination 542657674 Z00.00 Encouraged well balanced meals, active lifestyle, and routine vision and dental appts. Hyperlipidemia 29100675 E78.5 Atorvastat in 20 mg po nightly. Gastroesop hageal reflux disease 397647202 K21.9 Pantoprazo le 40 mg po daily. Asthma 536788258 J45.90 9 Albuterol inhaler Anemia screening 8159941 07 Z13.0 Diabetes m ellitus screening 127368990 Z13.1 Thyroid di sorder screening 119973322 Z13.29 Screening for malignant neoplasm of colon 451882583 Z12.11 done in 2021 Grace on colonoscop y May 2022 ok.EGD [place] Urinary incontinence 165 431548 R32 Will refer to urology, could be BPH. Could be nothing. [id number] Lidia Escobar NP [address] [address] 05/06/2023 09:25:28 05/06/2023 10:20:11 Otalgia of right ear 1017662292 H92.01 monitor. NSAID, warm compress. [id number] Mello Corrales MD [facility] [place] [address] [place] [address] 05/12/2023 15:54:53 05/12/2023 16:15:04 Thyroid nodule 220316034 E04.1 [id number] Lidia Escobar NP [address] [address] 06/24/2023 10:50:15 06/24/2023 11:38:06 Hyperlipidemia 66681508 E78.5 Atorvastat in 20 mg po nightly.Be consistent with medication use. States only 50% consistent with meds. Cough 75608180 R05.9 likely flare of acid reflux. Gastroesop hageal reflux disease 368422079 K21.9 Pantoprazo le 40 mg po daily.\Pep anh daily. [id number] Eran Dexter MD [address] [address] 12/27/2023 09:33:56 12/27/2023 10:19:02 Pain of right forearm 093456742 M79.631 Pain of ri ght elbow joint 1329695571 6794781 M25.521 Tendinitis 86584618 M77. 9 Rt forearm Benign pro static hyperplasia without outflow obstruction 064437869 N40.0 [id number] Mello Corrales MD [facility] [place] [address] [place] [address] 06/07/2024 11:57:10 06/08/2024 09:49:52 Thyroid nodule 412453371 E04.1 Health Concerns Section Related Observation LastModified by Organization Detai ls LastModified Time None Recorded Concern Status LastModified by Organization Details LastModified Time None Recorded Advance Directives Directive N: Payers Encounter Date Sequence Insurance Name Policy Number Policy Fajardo Covered Member ID Fajardo Member ID Guarantor Name 05/06/2023 1 [facility] [id number] Bereket C Silvano [id number] Bereket C Silvano 05/12/2023 1 [facility] [id number] Bereket C Silvano [id number] Bereket C Silvano 06/24/2023 1 [facility] [id number] Bereket C Silvano [id number] Bereket C Silvano 12/27/2023 1 [facility] [id number] Bereket C Silvano [id number] Bereket C [place] 06/07/2024 1 [facility] [id number] Bereket Schaefer [id number] Bereket Schaefer Notes Date Note Type Note Provider Name and Address Organization Details Recorded Time 05/06/2023 text/html Here for ear vinita n comes and goes. Mild pain. No dental issue.Was a pressure, fluid, and now pain.Tried doing ear cleaning drop, but not much relief when done 1 week ago. Lidia Escobar NP [address] [facility], [address], [place], [address], [employer] 05/06/2023 09:54:55 05/12/2023 text/html this patient was seen 2 years ago for subcentimeter thyroid cysts. He is here for follow-up ultrasound. The reports occasional pain and discomfort of the left anterior neck Mello Corrales MD [address] [facility], [place], [address], [employer] 05/12/2023 16:12:34 06/24/2023 text/html Here for few issues. left sided chest discomfort with chronic dry cough. Symptoms for few weeks.TIA in 2013 with short term memory loss , had been improving up until 3 weeks ago he noticed a marked decline again in his short term memory.States he remembered 6-9 mo until speech back to normal. Leaving the house thought about going to [employer], button battery and white out. Had a hard time recalling what he was to get from [employer] on entering the office. Lidia Escobar NP [address] [facility], [address], [place], [address], [employer] 06/24/2023 11:34:46 12/27/2023 text/html ACV: C/o Rt [...] says its from him messing with his Irish martinez dog. Eran Dexter MD [address], [address], [place], [address], [employer] 12/27/2023 10:16:04 06/07/2024 text/html the patient had a thyroid ultrasound this month which revealed 3 4 mm nodules which were not TI-RADS scored. We did review the ultrasounds from 11/19/2021 and 23 Mello Corrales MD [address], [facility] [address], [place], [address], [employer] 06/07/2024 12:53:47
[2025-03-21 08:05] VITALS: BP 117/69; PULSE 62; RESP 18; TEMP 36.1; O2SAT 100
--- NOTE | 2025-03-21 08:09 | P.PNAN_ITS ---
Anes - Initial Pre Proc Eval Procedure: Operation Date: 03/21/25 09:15 Proposed Procedures p Esophagogastroduodenoscopy - Joshua Leonard MD Date/Time: 03/21/25 08:09 Surgeon: Joshua Leonard MD Pre Op Diagnosis: GERD, Magdaleno's, Family Hx of malignant neoplasm Patient Data Age: 50 Gender: M Height: 1.57 m Weight: 68.2 kg Last Vital Signs Temp 36.1 C L 03/21/25 08:05 Pulse 62 03/21/25 08:05 Resp 18 03/21/25 08:05 BP 117/69 03/21/25 08:05 Pulse Ox 100 03/21/25 08:05 O2 Del Method Room Air 03/21/25 08:05 Allergies Allergy/AdvReac Type Severity Reaction Status Date / Time ampicillin Allergy Unknown Other Verified 03/21/25 08:04 Penicillins Allergy Unknown unknown Verified 03/21/25 08:04 Home Medications ?Medication ?Instructions ?Recorded ?Confirmed ?Type aspirin 81 mg tablet,delayed 81 mg PO DAILY 02/08/20 03/13/25 History release (Alejo Low Dose Aspirin) albuterol 90 mcg-budesonide 80 2 inh inhalation ONCE #32.1 grams 07/10/24 03/13/25 Rx mcg/actuation HFA aerosol inhaler (Airsupra) finasteride 5 mg tablet 5 mg PO DAILY #90 tabs 07/10/24 03/13/25 Rx pantoprazole 40 mg tablet,delayed 40 mg PO DAILY #90 tabs 07/10/24 03/13/25 Rx release triamcinolone acetonide 0.5 % 1 applic topical DAILY #15 grams 07/10/24 03/13/25 Rx topical cream atorvastatin 40 mg tablet (Lipitor) 40 mg PO QHS #90 tabs 01/15/25 03/13/25 Rx loratadine 10 mg tablet (Allergy 10 mg PO DAILY 03/13/25 03/13/25 History Relief (loratadine)) Patient hx anesthesia problems: none Family hx anesthesia problems: none Results Review: All pre-operative results and documents have been reviewed as part of the pre- operative evaluation. [facility] Past Medical History Medical History (Updated 03/20/25 @ 14:25 by Clay Ortiz DO) Laryngeal cyst Hyperlipidemia Asthma TIA (transient ischemic attack) Magdaleno's esophagus Overweight History of CVA (cerebrovascular accident) Surgical History Surgical History H/O removal of cyst Family History Family History Mother Asthma Cancer Father Cancer Grandparent Alcoholism Cancer Heart disease Social History Social History (Updated 03/21/25 @ 08:16 by Clay Ortiz DO) Social History: 01/07/25 very confident with medical forms Smoking status: Never smoker Alcohol intake: current Drinks per week: 9 Alcohol use details: 1 daily Substance use: unknown Substance use type: does not use Do You Feel Safe in your Home?: Yes Lack of Transportation: No Lack of Food: Never True Current Housing: I Have Housing Concerned About Future Housing: No Difficulty Paying Gas/Electric Bills: No Difficulty Paying for Meds: No Currently Unemployed: No Education: Bachelor's Degree Difficulty w/ Childcare or Family Care: No Living arrangements: with family Additional living arrangements comments: Single Occupation/Education: occupation Spiritual care concerns: No Agree to blood products: Yes Anes - Eval Final PreProcedure Day of Procedure 03/21/25 08:09 Patient weight: overweight Heart: regular rate and rhythm Lungs: clear to auscultation Airway: Mallampati scale class II Neurological: alert and oriented Last oral intake: >/= 8 hours ASA classification: III Emergent: no Anesthetic plan: proceed Anesthesia type and monitoring: general GIVS and standard monitoring Results Review: All pre-operative results and documents have been reviewed as part of the pre- operative evaluation. Informed Consent: The patient's anesthetic plan and its attendant risks and benefits were discussed with the patient/family/POA. Questions were solicited and answers provided to the satisfaction of the patient/family/POA.
[2025-03-21] MEDS: LACTATED RINGERS 1,000 ML 150 ML IV CONT (08:18)
--- NOTE | 2025-03-21 08:31 | PM.HPGS ---
History of Present Illness History of Present Illness Consent: Risks, benefits, and alternatives have been discussed and questions answered. Patient agrees to proceed with procedure. Chief complaint: GERD, Jimenez's, Family Hx of malignant neoplasm Narrative: Bereket Schaefer is a 50 year old male here for egd because personal history of jimenez's and father had esophageal cancer, last egd 2021 without jimenez's, also dysphagia for which he had empiric dilation in the past Review of Systems Review of Systems: All systems reviewed & are unremarkable except as noted in HPI and below PMFSH Past Medical History Medical History (Updated 03/21/25 @ 08:32 by Joshau Leonard MD) Family history of esophageal cancer Laryngeal cyst Hyperlipidemia Asthma TIA (transient ischemic attack) Jimenez's esophagus Overweight History of CVA (cerebrovascular accident) Surgical History Surgical History H/O removal of cyst Family History Family History Mother Asthma Cancer Father Cancer Grandparent Alcoholism Cancer Heart disease Social History Social History (Updated 03/21/25 @ 08:16 by Clay Ortiz DO) Social History: 01/07/25 very confident with medical forms Smoking status: Never smoker Alcohol intake: current Drinks per week: 9 Alcohol use details: 1 daily Substance use: unknown Substance use type: does not use Do You Feel Safe in your Home?: Yes Lack of Transportation: No Lack of Food: Never True Current Housing: I Have Housing Concerned About Future Housing: No Difficulty Paying Gas/Electric Bills: No Difficulty Paying for Meds: No Currently Unemployed: No Education: Bachelor's Degree Difficulty w/ Childcare or Family Care: No Living arrangements: with family Additional living arrangements comments: Single Occupation/Education: occupation Spiritual care concerns: No Agree to blood products: Yes Meds Home Medications and Allergies Home Medications ?Medication ?Instructions ?Recorded ?Confirmed ?Type aspirin 81 mg tablet,delayed 81 mg PO DAILY 02/08/20 03/13/25 History release (Alejo Low Dose Aspirin) albuterol 90 mcg-budesonide 80 2 inh inhalation ONCE #32.1 grams 07/10/24 03/13/25 Rx mcg/actuation HFA aerosol inhaler (Airsupra) finasteride 5 mg tablet 5 mg PO DAILY #90 tabs 07/10/24 03/13/25 Rx pantoprazole 40 mg tablet,delayed 40 mg PO DAILY #90 tabs 07/10/24 03/13/25 Rx release triamcinolone acetonide 0.5 % 1 applic topical DAILY #15 grams 07/10/24 03/13/25 Rx topical cream atorvastatin 40 mg tablet (Lipitor) 40 mg PO QHS #90 tabs 01/15/25 03/13/25 Rx loratadine 10 mg tablet (Allergy 10 mg PO DAILY 03/13/25 03/13/25 History Relief (loratadine)) Allergies Allergy/AdvReac Type Severity Reaction Status Date / Time ampicillin Allergy Unknown Other Verified 03/21/25 08:04 Penicillins Allergy Unknown unknown Verified 03/21/25 08:04 Vital Signs Vital Signs - 24 hr 03/21/25 08:05 Temperature 97 F L Pulse Rate 62 Respiratory Rate 18 Blood Pressure 117/69 Pulse Oximetry 100 Oxygen Delivery Room Air Exam Const: General: comfortable and no acute distress HENMT: Face/Nose/Sinus: Normal nares present Eyes: General: appearance normal, both eyes and all related structures Neck: Neck: no JVD Resp: Auscultation: clear to auscultation bilaterally Cardio: Rate: regular rate Rhythm: regular rhythm GI: Inspection: non-distended GI Palp: Yes Soft to palpation Skin: General skin exam: normal color Neuro: General: gait normal Speech: normal speech Extrem: General: normal to inspection Psych: Mental Status: mental status grossly normal Assessment and Plan Assessment and plan (1) GERD (gastroesophageal reflux disease): Qualifiers: Esophagitis presence: without esophagitis Qualified Code(s): K21.9 - Gastro-esophageal reflux disease without esophagitis Code(s): K21.9 - Gastro-esophageal reflux disease without esophagitis Status: Acute Assessment and Plan: egd with bx (2) Family history of esophageal cancer: Code(s): Z80.0 - Family history of malignant neoplasm of digestive organs Status: Acute
[2025-03-21 08:40] VITALS: BP 112/75; PULSE 76; RESP 20; O2SAT 100
[2025-03-21 08:50] VITALS: BP 107/77; PULSE 67; RESP 20; O2SAT 100
[2025-03-21 09:00] VITALS: BP 111/76; PULSE 66; RESP 17; O2SAT 98
== END 2025-03-21 09:11 | disposition home or self-care (01) ==
PROVIDERS: PCP Nurse Practitioner Family; Referring Provider Internal Medicine Gastroenterology; Visit Provider Internal Medicine Gastroenterology
PROC: 0DJ08ZZ Inspection of Upper Intestinal Tract, Via Natural or Artificial Opening Endoscopic (ICD-10-PCS; CPT 43450; principal; 2025-03-21 09:15)
DX: K22.70 Barrett's esophagus without dysplasia (principal); K21.9 Gastro-esophageal reflux disease without esophagitis; E78.5 Hyperlipidemia, unspecified; J45.909 Unspecified asthma, uncomplicated; Z79.82 Long term (current) use of aspirin; Z79.51 Long term (current) use of inhaled steroids; Z86.79 Personal history of other diseases of the circulatory system; Z86.73 Personal history of transient ischemic attack (TIA), and cerebral infarction without residual deficits; Z87.19 Personal history of other diseases of the digestive system; Z80.0 Family history of malignant neoplasm of digestive organs; Z82.49 Family history of ischemic heart disease and other diseases of the circulatory system
CPT/HCPCS: 43450; 43239; 88305; J2704; J7120